=== PATIENT | female | born 1945 | race Caucasian/White ===

== ENCOUNTER 2024-11-10 14:03 | Observation (INO) | payer MEDICARE ==
--- NOTE | 2024-11-10 14:10 | ERPHSYRPT ---
- History of Present Illness Time Seen by Provider: 11/10/24 14:10 Source: patient, family Exam Limitations: no limitations Physician History: This is an obese white female who presents to the emergency department arriving by private vehicle accompanied by family and is a patient of Dr. Callejas with a complaint of shortness of breath and weakness. The patient has not been feeling well for the last couple of weeks. She went to see Dr. Callejas in his office and her room air oxygen saturation level was in the 80s. Therefore she was sent to the emergency department for further evaluation management. On arrival to the emergency department her room her oxygen saturation level here was 88%. Patient denies chest pain. Patient denies abdominal pain. She has had no nausea vomiting and diarrhea. However, she does have a productive cough of greenish sputum. Patient has a history of hypertension, hyperlipidemia, diabetes, is on digoxin and Coumadin for her arrhythmia. Timing/Duration: week(s) (2), worse Severity of Dyspnea-Max: moderate Severity of Dyspnea-Current: moderate Possible Cause: occasional episodes Modifying Factors: Improves With: coughing, exertion (Symptoms worsen) Associated Symptoms: cough, weakness, No chest pain/discomfort Allergies/Adverse Reactions: JOSE ANTONIO Inhibitors Allergy (Unknown, Verified 11/10/24 14:11) bee venom protein (honey bee) Allergy (Unknown, Verified 11/10/24 14:11) Home Medications: Allopurinol 300 mg [Zyloprim 300 mg] 300 mg PO DAILY 11/10/24 [History] Amlodipine Besylate [Norvasc] 10 mg PO DAILY 11/10/24 [History] Atorvastatin Calcium 20 mg PO DAILY 11/10/24 [History] Digoxin 0.125 mg Tablet [Lanoxin 0.125MG TABLET] 0.25 mg PO DAILY 11/10/24 [History] Empagliflozin [Jardiance] 25 mg PO DAILY 11/10/24 [History] Furosemide 40 mg [Lasix 40 MG] 40 mg PO DAILY 11/10/24 [History] Glimepiride 2 mg [Amaryl 2 MG] 2 mg PO DAILY 11/10/24 [History] Losartan Potassium [Cozaar] 100 mg PO DAILY 11/10/24 [History] Potassium Chloride [Klor-Con M10] 10 meq PO BID 11/10/24 [History] Prednisone 5 mg [Deltasone 5 mg] 5 mg PO DAILY 11/10/24 [History] Warfarin Sodium 4 mg PO DAILY 11/10/24 [History] carvediloL [Carvedilol] 25 mg PO BID 11/10/24 [History] Travel Risk - International Travel Have you traveled outside of the country in past 3 weeks: No - Emerging Infectious Disease Are you exhibiting symptoms associated with any current EIDs: Yes Symptoms: Cough: New Onset, Shortness of Breath - Review of Systems Constitutional: Weakness Eyes: No Symptoms Ears, Nose, & Throat: No Symptoms Respiratory: Cough, Dyspnea on Exertion (CR) Cardiac: No Symptoms Abdominal/Gastrointestinal: No Symptoms Genitourinary Symptoms: No Symptoms Musculoskeletal: No Symptoms Skin: No Symptoms Neurological: No Symptoms Psychological: No Symptoms Endocrine: No Symptoms Hematologic/Lymphatic: No Symptoms Immunological/Allergic: No Symptoms All Other Systems: Reviewed and Negative - Past Medical History Pertinent Past Medical History: Yes - Nursing Vital Signs Nursing Vital Signs: Initial Vital Signs Pulse Rate 88 11/10/24 14:02 Respiratory Rate 23 11/10/24 14:02 Blood Pressure 147/66 11/10/24 14:02 O2 Sat by Pulse Oximetry 90 L 11/10/24 14:02 Pain Scale Pain Intensity 0 - Physical Exam General Appearance: mild distress, alert, anxiety, obese Eye Exam: PERRL/EOMI, eyes nml inspection Ears, Nose, Throat Exam: hearing grossly normal, normal ENT inspection, normal pharynx Neck Exam: normal inspection, non-tender, supple, full range of motion Respiratory Exam: normal breath sounds, lungs clear, respiratory distress, airway intact, No chest tenderness Cardiovascular/Chest Exam: normal heart sounds, regular rate/rhythm, normal nohemi pheral pulses Abdominal/Gastrointestinal Exam: soft, normal bowel sounds, No tenderness Rectal Exam: not done Extremity Exam: non-tender, normal range of motion, normal inspection Neurologic Exam: alert, oriented x 3, cooperative, lacer and tier II-XII nml as tested, nml cerebellar function, nml station & gait, sensation nml Skin Exam: normal color, warm, dry Lymphatic Exam: No adenopathy SpO2 Interpretation: hypoxic O2 Delivery: Room Air - Course Nursing assessment & vital signs reviewed: Yes EKG Interpreted by Me: RATE (88), A-fib, NORMAL AXIS, NORMAL INTERVALS, NORMAL QRS, Other (QTc is 418. I am not convinced there is an acute myocardial infarction. I will repeat the twelve-lead EKG.) Ordered Tests: Active Orders 24 hr Category Date Time Status EKG-ER Only STAT Care 11/10/24 14:23 Active EKG-ER Only STAT Care 11/10/24 16:38 Active IV Insertion STAT Care 11/10/24 14:23 Active Oxygen-ED Only Nasal Cannula 3 lpm Care 11/10/24 14:37 Active CHEST 1 VIEW (PORTABLE) Stat Exams 11/10/24 14:24 Completed BLOOD CULTURE Stat Lab 11/10/24 14:58 Received CBC W DIFF Stat Lab 11/10/24 14:33 Completed CMP Stat Lab 11/10/24 14:33 Completed CULTURE,SPUTUM Stat Lab 11/10/24 16:26 Ordered Lactic Acid Stat Lab 11/10/24 14:25 Completed Lactic Acid Stat Lab 11/10/24 16:36 Received MAGNESIUM Stat Lab 11/10/24 14:33 Completed Manual Differential NC Stat Lab 11/10/24 14:33 Completed NT PRO BNPII Stat Lab 11/10/24 14:33 Completed PROTIME WITH INR Stat Lab 11/10/24 14:33 Completed TROPONIN Q4H Lab 11/10/24 14:33 Completed TROPONIN Q4H Lab 11/10/24 18:30 Ordered TROPONIN Q4H Lab 11/10/24 22:30 Ordered UA W/RFX UR CULTURE Stat Lab 11/10/24 14:38 Completed Respiratory Therapy Assessment DAILY RT 11/10/24 14:19 Active Medication Summary Discontinued Medications Generic Name Dose Route Start Last Admin Trade Name Freq PRN Reason Stop Dose Admin Albuterol/Ipratropium Confirm 11/10/24 14:13 Ipratropium/Albuterol Sulfate 3 Ml Ampul.Neb Administered 11/10/24 14:14 Dose 3 ml IH .STK-MED ONE Albuterol/Ipratropium 3 ml 11/10/24 14:18 11/10/24 14:19 Ipratropium/Albuterol Sulfate 3 Ml Ampul.Neb IH 11/10/24 14:19 3 ml STAT ONE Administration Methylprednisolone Sodium 0 mg 11/10/24 15:51 11/10/24 15:53 Succinate 125 mg/ Sterile IV 11/10/24 15:52 125 mg Water 2 ml STAT ONE Administration Ceftriaxone Sodium 1 gm in 100 mls @ 200 mls/hr 11/10/24 16:29 11/10/24 16:43 Rocephin 1 Gm / 100 Ml Nacl IV 11/10/24 16:58 200 mls/hr STAT ONE 200 mls/hr Administration Ceftriaxone Sodium Confirm 11/10/24 16:41 Rocephin 1 Gm / 100 Ml Nacl Administered 11/10/24 16:42 Dose 1 gm in 100 mls @ ud IV .STK-MED ONE Methylprednisolone Sodium Succinate Confirm 11/10/24 15:52 Methylprednis Sod Succ 125 Mg/2 Ml Vial Administered 11/10/24 15:53 Dose 125 mg .ROUTE .STK-MED ONE Sterile Water Confirm 11/10/24 15:52 Water For Injection,Sterile 10 Ml Vial Administered 11/10/24 15:53 Dose 10 ml IJ .STK-MED ONE Lab/Rad Data: Laboratory Result Diagrams 11/10/24 14:33 11/10/24 14:33 Laboratory Results 11/10/24 11/10/24 11/10/24 Range/Units Unknown 14:58 14:38 WBC (3.98-10.04) x10^3/uL RBC (3.93-5.22) x10^6/uL Hgb (11.2-15.7) g/dL Hct (34.1-44.9) % MCV (79.4-94.8) fL MCH (25.6-32.2) pg MCHC (32.2-35.5) g/dL RDW (11.7-14.4) % Plt Count (182-369) x10^3/uL MPV (9.4-12.3) fL Gran % (34.0-71.1) % Immature Gran % (Auto) (0.001-0.429) % Nucleat RBC Rel Count (0.00-0.2) % Eos # (Auto) (0.04-0.36) x10^3/uL Immature Gran # (Auto) (0.001-0.031) x10^3u/L Absolute Lymphs (auto) (1.18-3.74) x10^3/uL Absolute Monos (auto) (0.24-0.86) x10^3/uL Absolute Nucleated RBC (0.00-0.012) x10^3u/L Lymphocytes % (19.3-51.7) % Monocytes % (4.7-12.5) % Eosinophils % (0.7-5.8) % Basophils % (0.1-1.2) % Absolute Granulocytes (1.56-6.13) x10^3/uL Segmented Neutrophils (34.0-71.1) % Band Neutrophils (0.0-2.0) % Lymphocytes (Manual) (19.3-51.7) % Monocytes (Manual) (4.7-12.5) % Basophils # (0.01-0.08) x10^3/uL Platelet Estimate (NORMAL) RBC Morphology Poikilocytosis Anisocytosis PT (9.4-12.5) SECONDS INR (0.8-3.0) Sodium (135-145) mmol/L Potassium (3.5-5.1) mmol/L Chloride (98-107) mmol/L Carbon Dioxide (22-30) mmol/L Anion Gap (5-15) MEQ/L BUN (7-17) mg/dL Creatinine (0.52-1.04) mg/dL Estimated GFR ML/MIN Glucose (74-106) mg/dL Lactic Acid (0.4-2.0) Calcium (8.4-10.2) mg/dL Magnesium (1.6-2.3) mg/dL Total Bilirubin (0.2-1.3) mg/dL AST (14-36) U/L ALT (0-35) U/L Alkaline Phosphatase (38-126) U/L Troponin I (0.000-0.033) ng/mL NT-Pro-B Natriuret Pep (<300) pg/mL Serum Total Protein (6.3-8.2) g/dL Albumin (3.5-5.0) g/dL Urine Color Yellow (Yellow) Urine Appearance Clear (Clear) Urine pH 5.5 (4.6-8.0) Ur Specific Woodson >=1.030 A (1.005-1.030) Urine Protein Trace A (Negative) Urine Glucose (UA) >=1000 A (Negative) mg/dL Urine Ketones 15 A (Negative) Urine Blood Negative (Negative) Urine Nitrite Negative (Negative) Urine Bilirubin Negative (Negative) Urine Urobilinogen 1.0 A (0.2) mg/dL Ur Leukocyte Esterase Negative (Negative) U Hyaline Cast (Auto) NONE SEEN (0-2) /LPF Urine Microscopic RBC 0-2 (0-5) /HPF Urine Microscopic WBC 0-2 (0-5) /HPF Ur Epithelial Cells None Seen (None Seen) /HPF Urine Bacteria None Seen (None Seen) /HPF Urine Culture Reflexed NO (NO) Digoxin 0.8 (0.8-1.9) ng/mL Influenza Type A Ag NEGATIVE (NEGATIVE) Influenza Type B Ag NEGATIVE (NEGATIVE) RSV (PCR) NEGATIVE (NEGATIVE) SARS-CoV-2 (PCR) NEGATIVE (NEGATIVE) 11/10/24 11/10/24 11/10/24 Range/Units 14:33 14:33 14:33 WBC (3.98-10.04) x10^3/uL RBC (3.93-5.22) x10^6/uL Hgb (11.2-15.7) g/dL Hct (34.1-44.9) % MCV (79.4-94.8) fL MCH (25.6-32.2) pg MCHC (32.2-35.5) g/dL RDW (11.7-14.4) % Plt Count (182-369) x10^3/uL MPV (9.4-12.3) fL Gran % (34.0-71.1) % Immature Gran % (Auto) (0.001-0.429) % Nucleat RBC Rel Count (0.00-0.2) % Eos # (Auto) (0.04-0.36) x10^3/uL Immature Gran # (Auto) (0.001-0.031) x10^3u/L Absolute Lymphs (auto) (1.18-3.74) x10^3/uL Absolute Monos (auto) (0.24-0.86) x10^3/uL Absolute Nucleated RBC (0.00-0.012) x10^3u/L Lymphocytes % (19.3-51.7) % Monocytes % (4.7-12.5) % Eosinophils % (0.7-5.8) % Basophils % (0.1-1.2) % Absolute Granulocytes (1.56-6.13) x10^3/uL Segmented Neutrophils (34.0-71.1) % Band Neutrophils (0.0-2.0) % Lymphocytes (Manual) (19.3-51.7) % Monocytes (Manual) (4.7-12.5) % Basophils # (0.01-0.08) x10^3/uL Platelet Estimate (NORMAL) RBC Morphology Poikilocytosis Anisocytosis PT 16.5 H (9.4-12.5) SECONDS INR 1.56 (0.8-3.0) Sodium 135 (135-145) mmol/L Potassium 4.1 (3.5-5.1) mmol/L Chloride 97 L (98-107) mmol/L Carbon Dioxide 24 (22-30) mmol/L Anion Gap 18.7 H (5-15) MEQ/L BUN 17 (7-17) mg/dL Creatinine 0.63 (0.52-1.04) mg/dL Estimated GFR 91.3 ML/MIN Glucose 145 H (74-106) mg/dL Lactic Acid (0.4-2.0) Calcium 8.8 (8.4-10.2) mg/dL Magnesium 2.4 H (1.6-2.3) mg/dL Total Bilirubin 1.20 (0.2-1.3) mg/dL AST 52 H (14-36) U/L ALT 64 H (0-35) U/L Alkaline Phosphatase 128 H (38-126) U/L Troponin I < 0.012 (0.000-0.033) ng/mL NT-Pro-B Natriuret Pep 598 (<300) pg/mL Serum Total Protein 7.0 (6.3-8.2) g/dL Albumin 3.8 (3.5-5.0) g/dL Urine Color (Yellow) Urine Appearance (Clear) Urine pH (4.6-8.0) Ur Specific Woodson (1.005-1.030) Urine Protein (Negative) Urine Glucose (UA) (Negative) mg/dL Urine Ketones (Negative) Urine Blood (Negative) Urine Nitrite (Negative) Urine Bilirubin (Negative) Urine Urobilinogen (0.2) mg/dL Ur Leukocyte Esterase (Negative) U Hyaline Cast (Auto) (0-2) /LPF Urine Microscopic RBC (0-5) /HPF Urine Microscopic WBC (0-5) /HPF Ur Epithelial Cells (None Seen) /HPF Urine Bacteria (None Seen) /HPF Urine Culture Reflexed (NO) Digoxin (0.8-1.9) ng/mL Influenza Type A Ag (NEGATIVE) Influenza Type B Ag (NEGATIVE) RSV (PCR) (NEGATIVE) SARS-CoV-2 (PCR) (NEGATIVE) 11/10/24 11/10/24 Range/Units 14:33 14:25 WBC 21.5 H (3.98-10.04) x10^3/uL RBC 5.26 H (3.93-5.22) x10^6/uL Hgb 14.9 (11.2-15.7) g/dL Hct 44.1 (34.1-44.9) % MCV 83.8 (79.4-94.8) fL MCH 28.3 (25.6-32.2) pg MCHC 33.8 (32.2-35.5) g/dL RDW 13.7 (11.7-14.4) % Plt Count 387 H (182-369) x10^3/uL MPV 9.7 (9.4-12.3) fL Gran % 81.4 H (34.0-71.1) % Immature Gran % (Auto) 1.6 H (0.001-0.429) % Nucleat RBC Rel Count 0.0 (0.00-0.2) % Eos # (Auto) 0.03 L (0.04-0.36) x10^3/uL Immature Gran # (Auto) 0.35 H (0.001-0.031) x10^3u/L Absolute Lymphs (auto) 1.98 (1.18-3.74) x10^3/uL Absolute Monos (auto) 1.61 H (0.24-0.86) x10^3/uL Absolute Nucleated RBC 0.00 (0.00-0.012) x10^3u/L Lymphocytes % 9.2 L (19.3-51.7) % Monocytes % 7.5 (4.7-12.5) % Eosinophils % 0.1 L (0.7-5.8) % Basophils % 0.2 (0.1-1.2) % Absolute Granulocytes 17.49 H (1.56-6.13) x10^3/uL Segmented Neutrophils 86 H (34.0-71.1) % Band Neutrophils 3 H (0.0-2.0) % Lymphocytes (Manual) 9 L (19.3-51.7) % Monocytes (Manual) 2 L (4.7-12.5) % Basophils # 0.05 (0.01-0.08) x10^3/uL Platelet Estimate NORMAL (NORMAL) RBC Morphology ABNORMAL Poikilocytosis 1+ Anisocytosis 1+ PT (9.4-12.5) SECONDS INR (0.8-3.0) Sodium (135-145) mmol/L Potassium (3.5-5.1) mmol/L Chloride (98-107) mmol/L Carbon Dioxide (22-30) mmol/L Anion Gap (5-15) MEQ/L BUN (7-17) mg/dL Creatinine (0.52-1.04) mg/dL Estimated GFR ML/MIN Glucose (74-106) mg/dL Lactic Acid 1.9 (0.4-2.0) Calcium (8.4-10.2) mg/dL Magnesium (1.6-2.3) mg/dL Total Bilirubin (0.2-1.3) mg/dL AST (14-36) U/L ALT (0-35) U/L Alkaline Phosphatase (38-126) U/L Troponin I (0.000-0.033) ng/mL NT-Pro-B Natriuret Pep (<300) pg/mL Serum Total Protein (6.3-8.2) g/dL Albumin (3.5-5.0) g/dL Urine Color (Yellow) Urine Appearance (Clear) Urine pH (4.6-8.0) Ur Specific Woodson (1.005-1.030) Urine Protein (Negative) Urine Glucose (UA) (Negative) mg/dL Urine Ketones (Negative) Urine Blood (Negative) Urine Nitrite (Negative) Urine Bilirubin (Negative) Urine Urobilinogen (0.2) mg/dL Ur Leukocyte Esterase (Negative) U Hyaline Cast (Auto) (0-2) /LPF Urine Microscopic RBC (0-5) /HPF Urine Microscopic WBC (0-5) /HPF Ur Epithelial Cells (None Seen) /HPF Urine Bacteria (None Seen) /HPF Urine Culture Reflexed (NO) Digoxin (0.8-1.9) ng/mL Influenza Type A Ag (NEGATIVE) Influenza Type B Ag (NEGATIVE) RSV (PCR) (NEGATIVE) SARS-CoV-2 (PCR) (NEGATIVE) - Progress Progress: improved, re-examined Air Movement: fair Progress Note: 11/10/24 14:45 My medical decision making of the assignment of at least moderate complexity is based on the review of the patient's past medical history, review of the patient's medication list, reviewed patient drug allergy list, history present illness and physical findings on examination. The workup in this patient includ es placement of intravenous line, respiratory therapy evaluation and treatment with DuoNeb, CBC, CMP, magnesium level, viral swabs, chest x-ray, PT/INR, troponin level, twelve-lead EKG, BNP. Differential diagnosis includes but is not limited to CHF exacerbation, COPD exacerbation, upper respiratory infection, pneumonia, arrhythmia, myocardial infarction, viral illness 11/10/24 17:08 I interpreted the patient's laboratory data results. Based on the laboratory data results, the patient has a significant leukocytosis with a left shift. Her troponin is in the normal range. She does not have chest pain. Chest x-ray was interpreted by the radiologist and I reviewed the impression. The impression states right lung infiltrate. I spoke with our telehospitalist, Dr. Berg. I reviewed the patient history, chief complaint, workup performed and its results, and the patient response to our intervention. We will place this patient in observation for IV antibiotics nebulizer treatments and oxygen supplementation Blood Culture(s) Obtained: Yes Antibiotics given: Yes Counseled pt/family regarding: lab results, diagnosis, rad results Medical Desision Making - Independent Historian Additional History obtained from: Spouse - Diagnostic Testing Diagnostic test were ordered, analyzed, and reviewed by me: Yes Radiological Interpretation: Reviewed by me, Teleradiologist Report - Risk of complications The pt has a high risk of morbidity or mortality based on: Decision regarding hospitilization or escalation of hosp level of care - Departure Departure Disposition: Observation Clinical Impression: Right pulmonary infiltrate on CXR, Leukocytosis, Hypoxia Condition: Fair Critical Care Time: Yes Critical Care Time(excluding separately billable procedures): Critical 30-74 mins (45 minutes) Referrals: ERYN CALLEJAS [Primary Care Provider] - Follow up/PCP as directed
[2024-11-10] MEDS ORDERED: DUONEB 0.5-3 MG/3 ml Neb IH ONE (14:13)
[2024-11-10] MEDS: DUONEB 0.5-3 MG/3 ml Neb IH ONE (14:19)
[2024-11-10 14:38] LABS: Absolute Neutrophil Ct (ANC) 17.49 x10^3/uL (1.56-6.13); BASOPHIL % 0.2 % (0.1-1.2); Basophil (Absolute #) 0.05 x10^3/uL (0.01-0.08); Eosinophil % 0.1 % (0.7-5.8); Eosinophil (Absolute #) 0.03 x10^3/uL (0.04-0.36); Hematocrit 44.1 % (34.1-44.9); Hemoglobin 14.9 g/dL (11.2-15.7); IMMATURE GRAN # 0.35 x10^3u/L (0.001-0.031); IMMATURE GRAN % 1.6 % (0.001-0.429); Lymphocyte (Absolute #) 1.98 x10^3/uL (1.18-3.74); Lymphocytes % 9.2 % (19.3-51.7); Mean Cell Volume 83.8 fL (79.4-94.8); Mean Corpuscular Hemoglobin 28.3 pg (25.6-32.2); Mean Corpuscular Hgb Concent. 33.8 g/dL (32.2-35.5); Mean Platelet Volume 9.7 fL (9.4-12.3); Monocyte (Absolute #) 1.61 x10^3/uL (0.24-0.86); Monocytes % 7.5 % (4.7-12.5); Neutrophil % 81.4 % (34.0-71.1); Platelet Count 387 x10^3/uL (182-369); Red Blood Count 5.26 x10^6/uL (3.93-5.22); Red Cell Distribution Width 13.7 % (11.7-14.4); White Blood Count 21.5 x10^3/uL (3.98-10.04)
[2024-11-10 14:52] LABS: INR 1.56 (0.8-3.0); PROTIME 16.5 SECONDS (9.4-12.5)
[2024-11-10 15:05] LABS: BAND 3 % (0.0-2.0); Lymphocytes 9 % (19.3-51.7); Monocyte 2 % (4.7-12.5); Neutrophils 86 % (34.0-71.1); Total Cells Counted 100
[2024-11-10 15:06] LABS: ANISOCYTOSIS 1+; Platelet Estimate NORMAL (NORMAL); Poikilocytosis 1+
[2024-11-10 15:10] LABS: ALBUMIN 3.8 g/dL (3.5-5.0); ANION GAP 18.7 MEQ/L (5-15); BILIRUBIN,TOTAL 1.2 mg/dL (0.2-1.3); Calcium 8.8 mg/dL (8.4-10.2); Creatinine 1 0.63 mg/dL (0.52-1.04); EST GLOMERULAR FILTRATION RATE 91.3 ML/MIN; MAGNESIUM 2.4 mg/dL (1.6-2.3); Potassium 4.1 mmol/L (3.5-5.1)
[2024-11-10 15:34] LABS: Appearance Clear (Clear); Bacteria None Seen /HPF (None Seen); Bilirubin Negative (Negative); Blood Negative (Negative); Epithelial Cells None Seen /HPF (None Seen); Glucose, Urine >=1000 mg/dL (Negative); Hyaline Casts NONE SEEN /LPF (0-2); Ketones 15 (Negative); Leukocyte Esterase Negative (Negative); Nitrite Negative (Negative); Ph 5.5 (4.6-8.0); Protein,Urine Dip Trace (Negative); RBC 0-2 /HPF (0-5); Specific Gravity >=1.030 (1.005-1.030); WBC 0-2 /HPF (0-5)
[2024-11-10] MEDS ORDERED: Sterile H2O 10 ml IJ ONE ×2 (15:52→21:02)
[2024-11-10] MEDS ORDERED: solu-MEDROL ONE ×2 (15:52→21:01)
[2024-11-10 15:53] LABS: INFLUENZA A NEGATIVE (NEGATIVE); INFLUENZA B NEGATIVE (NEGATIVE); RESPIRATORY SYNCTIAL VIRUS NEGATIVE (NEGATIVE); SARS-CoV-2 Xpert Express NEGATIVE (NEGATIVE)
[2024-11-10] MEDS: solu-MEDROL 125 MG, Sterile H2O 10 ml 2 ML IV ONE (15:53)
--- NOTE | 2024-11-10 16:26 | XRAY ---
Indication: Cough. Short of breath. Comparison: None Portable chest demonstrates diffuse hazy right lung interstitial alveolar opacities without consolidation/large effusion. Remaining heart and left lung unremarkable. Bony thorax intact.
[2024-11-10] MEDS ORDERED: ROCEPHIN 1 GM / 100 ML NaCl 1 GM/100 ML IVPB IV ONE (16:41)
[2024-11-10] MEDS: ROCEPHIN 1 GM / 100 ML NaCl 1 GM/100 ML IVPB IV ONE (16:43)
[2024-11-10] MEDS ORDERED: Sodium Chloride 0.9% 1000 ML 1,000 ML IV SCH (17:31)
[2024-11-10] MEDS ORDERED: TYLENOL 325 MG PO PRN (17:31)
[2024-11-10] MEDS ORDERED: Zofran 4 MG/2 ML VIAL IV PRN (17:31)
--- NOTE | 2024-11-10 18:40 | PCM.HP ---
History of Present Illness - Chief Complaint Chief Complaint: PNE Date: 11/10/24 History of Present Illness: is a 79 year old female with PMHX of of hypertension, hyperlipidemia, diabetes, is on digoxin and Coumadin for her arrhythmia. She presented to the emergency department with a complaint of shortness of breath and weakness. The patient has not been feeling well for the last couple of weeks. She went to see Dr. Callejas in his office and her room air oxygen saturation level was in the 80s. Therefore she was sent to the emergency department for further evaluation management. On arrival to the emergency department her room her oxygen saturation level here was 88%. She has a productive cough of greenish sputum. In the ER she was started on antibiotics, steriods, and dunebs for pneumonia as seen on the CXR. Will continue same plan of care. She is on 2lNC 92 % and baseline is room air. She states she is starting to feel better after ER breathing treatment. She has continued coarse lung sounds throughout. She denies CP, Abd. pain, N/V/D. - Review of Systems Constitutional: Weakness, No Fever, No Chills Eyes: No Symptoms Ears, Nose, & Throat: No Symptoms Respiratory: Cough, Short Of Breath Cardiac: No Chest Pain, No Edema, No Syncope Abdominal/Gastrointestinal: No Abdominal Pain, No Nausea, No Vomiting, No Diarrhea Genitourinary Symptoms: No Dysuria Musculoskeletal: No Back Pain, No Neck Pain Skin: No Rash Neurological: No Dizziness, No Focal Weakness, No Sensory Changes Psychological: No Symptoms Endocrine: No Symptoms Hematologic/Lymphatic: No Symptoms Immunological/Allergic: No Symptoms Medications & Allergies Home Medications: Home Medication List Allopurinol 300 mg [Zyloprim 300 mg] 300 mg PO QHS 11/10/24 [History Confirmed 11/10/24] Amlodipine Besylate [Norvasc] 10 mg PO DAILY 11/10/24 [History Confirmed 11/10/24] Atorvastatin Calcium 20 mg PO QHS 11/10/24 [History Confirmed 11/10/24] Digoxin 0.125 mg Tablet [Lanoxin 0.125MG TABLET] 0.25 mg PO DAILY 11/10/24 [History Confirmed 11/10/24] Empagliflozin [Jardiance] 25 mg PO DAILY 11/10/24 [History Confirmed 11/10/24] Furosemide 40 mg [Lasix 40 MG] 40 mg PO DAILY 11/10/24 [History Confirmed 11/10/24] Glimepiride 2 mg [Amaryl 2 MG] 2 mg PO DAILY 11/10/24 [History Confirmed 11/10/24] Losartan Potassium [Cozaar] 100 mg PO DAILY 11/10/24 [History Confirmed 11/10/24] Potassium Chloride [Klor-Con M10] 10 meq PO BID 11/10/24 [History Confirmed 11/10/24] Prednisone 5 mg [Deltasone 5 mg] 5 mg PO DAILY 11/10/24 [History Confirmed 11/10/24] Warfarin Sodium 4 mg PO QHS 11/10/24 [History Confirmed 11/10/24] carvediloL [Carvedilol] 25 mg PO BID 11/10/24 [History Confirmed 11/10/24] Allergies/Adverse Reactions: Allergies Allergy/AdvReac Type Severity Reaction Status Date / Time JOSE ANTONIO Inhibitors Allergy Severe Anaphylactic Verified 11/10/24 17:51 Reaction bee venom protein (honey bee) Allergy Severe Anaphylactic Verified 11/10/24 17:51 Reaction - Past Medical History Past Medical History: Yes Neurological History: No Pertinent History ENT History: No Pertinent History Cardiac History: Arrhythmia, High Cholesterol, Hypertension Respiratory History: No Pertinent History Endocrine Medical History: Diabetes Type II Musculoskelatal History: No Pertinent History GI Medical History: No Pertinent History History: No Pertinent History Pyscho-Social History: No Pertinent History Reproductive Disorders: No Pertinent History Comment: gout - Past Surgical History Past Surgical History: Yes GI Surgical History: Appendectomy Other Surgical History: cardioversion, heart ablation - Social History Smoking Status: Never smoker Exposure to second hand smoke: No Alcohol: Occasionally Drug Use: none - Social Determinants of Health Will the patient participate in the screening: Yes Do you worry about a steady place to live?: No Do you have any problems with any of the following?: No known problems In the past 12 months,have you had to go without utilities?: No Have you or anyone in your house had to go without enough: No Transportation Issues: No Has anyone in your support network made you feel unsafe?: No Does the patient want assistance with any of the above?: No - Physical Exam Vital Signs: Vital Signs - 24 hr Temp Pulse Resp BP BP Pulse Ox 11/10/24 17:54 97.5 F 102 H 132/66 91 L 11/10/24 17:52 92 L 11/10/24 17:31 91 H 22 88 L 11/10/24 17:15 91 H 25 H 162/108 92 L 11/10/24 17:01 92 H 23 135/81 92 L 11/10/24 16:45 88 21 147/86 92 L 11/10/24 16:38 85 21 163/70 91 L 11/10/24 16:30 102 H 22 155/112 92 L 11/10/24 16:28 86 23 131/93 90 L 11/10/24 16:27 86 18 91 L 11/10/24 16:20 90 21 92 L 11/10/24 16:16 87 20 94 L 11/10/24 16:03 88 21 92 L 11/10/24 15:47 95 H 20 88 L 11/10/24 15:32 87 24 92 L 11/10/24 15:17 82 19 158/98 91 L 11/10/24 15:16 88 25 H 93 L 11/10/24 15:10 85 22 93 L 11/10/24 15:00 91 H 28 H 93 L 11/10/24 14:50 98 H 26 H 11/10/24 14:46 96 H 23 11/10/24 14:20 83 26 H 90 L 11/10/24 14:17 84 22 150/56 98 11/10/24 14:03 97.5 F 76 24 147/66 90 L 11/10/24 14:02 88 23 147/66 90 L General Appearance: no apparent distress, alert, obese Neurologic Exam: alert, oriented x 3, cooperative, normal mood/affect, nml cerebellar function, nml station & gait, sensation nml, No motor deficits Eye Exam: PERRL/EOMI, eyes nml inspection Ears, Nose, Throat Exam: normal ENT inspection, TMs normal, pharynx normal, moist mucous membranes Neck Exam: normal inspection, non-tender, supple, full range of motion Respiratory Exam: rhonchi, No respiratory distress Cardiovascular Exam: regular rate/rhythm, normal heart sounds, normal peripheral pulses Gastrointestinal/Abdomen Exam: soft, normal bowel sounds, No tenderness, No mass Back Exam: normal inspection, normal range of motion, No CVA tenderness, No vertebral tenderness Extremity Exam: normal inspection, normal range of motion, pelvis stable Skin Exam: normal color, warm, dry, No rash Lymphatic Exam: No adenopathy Results - Labs Lab/Micro Results: Lab Results-Last 24 Hours 11/10/24 11/10/24 11/10/24 Range/Units 14:25 14:33 14:33 WBC 21.5 H (3.98-10.04) x10^3/uL RBC 5.26 H (3.93-5.22) x10^6/uL Hgb 14.9 (11.2-15.7) g/dL Hct 44.1 (34.1-44.9) % MCV 83.8 (79.4-94.8) fL MCH 28.3 (25.6-32.2) pg MCHC 33.8 (32.2-35.5) g/dL RDW 13.7 (11.7-14.4) % Plt Count 387 H (182-369) x10^3/uL MPV 9.7 (9.4-12.3) fL Gran % 81.4 H (34.0-71.1) % Immature Gran % (Auto) 1.6 H (0.001-0.429) % Nucleat RBC Rel Count 0.0 (0.00-0.2) % Eos # (Auto) 0.03 L (0.04-0.36) x10^3/uL Immature Gran # (Auto) 0.35 H (0.001-0.031) x10^3u/L Absolute Lymphs (auto) 1.98 (1.18-3.74) x10^3/uL Absolute Monos (auto) 1.61 H (0.24-0.86) x10^3/uL Absolute Nucleated RBC 0.00 (0.00-0.012) x10^3u/L Lymphocytes % 9.2 L (19.3-51.7) % Monocytes % 7.5 (4.7-12.5) % Eosinophils % 0.1 L (0.7-5.8) % Basophils % 0.2 (0.1-1.2) % Absolute Granulocytes 17.49 H (1.56-6.13) x10^3/uL Segmented Neutrophils 86 H (34.0-71.1) % Band Neutrophils 3 H (0.0-2.0) % Lymphocytes (Manual) 9 L (19.3-51.7) % Monocytes (Manual) 2 L (4.7-12.5) % Basophils # 0.05 (0.01-0.08) x10^3/uL Platelet Estimate NORMAL (NORMAL) RBC Morphology ABNORMAL Poikilocytosis 1+ Anisocytosis 1+ PT (9.4-12.5) SECONDS INR (0.8-3.0) Sodium 135 (135-145) mmol/L Potassium 4.1 (3.5-5.1) mmol/L Chloride 97 L (98-107) mmol/L Carbon Dioxide 24 (22-30) mmol/L Anion Gap 18.7 H (5-15) MEQ/L BUN 17 (7-17) mg/dL Creatinine 0.63 (0.52-1.04) mg/dL Estimated GFR 91.3 ML/MIN Glucose 145 H (74-106) mg/dL Lactic Acid 1.9 (0.4-2.0) Calcium 8.8 (8.4-10.2) mg/dL Magnesium 2.4 H (1.6-2.3) mg/dL Total Bilirubin 1.20 (0.2-1.3) mg/dL AST 52 H (14-36) U/L ALT 64 H (0-35) U/L Alkaline Phosphatase 128 H (38-126) U/L Troponin I (0.000-0.033) ng/mL NT-Pro-B Natriuret Pep 598 (<300) pg/mL Serum Total Protein 7.0 (6.3-8.2) g/dL Albumin 3.8 (3.5-5.0) g/dL Urine Color (Yellow) Urine Appearance (Clear) Urine pH (4.6-8.0) Ur Specific [place] (1.005-1.030) Urine Protein (Negative) Urine Glucose (UA) (Negative) mg/dL Urine Ketones (Negative) Urine Blood (Negative) Urine Nitrite (Negative) Urine Bilirubin (Negative) Urine Urobilinogen (0.2) mg/dL Ur Leukocyte Esterase (Negative) U Hyaline Cast (Auto) (0-2) /LPF Urine Microscopic RBC (0-5) /HPF Urine Microscopic WBC (0-5) /HPF Ur Epithelial Cells (None Seen) /HPF Urine Bacteria (None Seen) /HPF Urine Culture Reflexed (NO) Digoxin (0.8-1.9) ng/mL Influenza Type A Ag (NEGATIVE) Influenza Type B Ag (NEGATIVE) RSV (PCR) (NEGATIVE) SARS-CoV-2 (PCR) (NEGATIVE) 11/10/24 11/10/24 11/10/24 Range/Units 14:33 14:33 14:38 WBC (3.98-10.04) x10^3/uL RBC (3.93-5.22) x10^6/uL Hgb (11.2-15.7) g/dL Hct (34.1-44.9) % MCV (79.4-94.8) fL MCH (25.6-32.2) pg MCHC (32.2-35.5) g/dL RDW (11.7-14.4) % Plt Count (182-369) x10^3/uL MPV (9.4-12.3) fL Gran % (34.0-71.1) % Immature Gran % (Auto) (0.001-0.429) % Nucleat RBC Rel Count (0.00-0.2) % Eos # (Auto) (0.04-0.36) x10^3/uL Immature Gran # (Auto) (0.001-0.031) x10^3u/L Absolute Lymphs (auto) (1.18-3.74) x10^3/uL Absolute Monos (auto) (0.24-0.86) x10^3/uL Absolute Nucleated RBC (0.00-0.012) x10^3u/L Lymphocytes % (19.3-51.7) % Monocytes % (4.7-12.5) % Eosinophils % (0.7-5.8) % Basophils % (0.1-1.2) % Absolute Granulocytes (1.56-6.13) x10^3/uL Segmented Neutrophils (34.0-71.1) % Band Neutrophils (0.0-2.0) % Lymphocytes (Manual) (19.3-51.7) % Monocytes (Manual) (4.7-12.5) % Basophils # (0.01-0.08) x10^3/uL Platelet Estimate (NORMAL) RBC Morphology Poikilocytosis Anisocytosis PT 16.5 H (9.4-12.5) SECONDS INR 1.56 (0.8-3.0) Sodium (135-145) mmol/L Potassium (3.5-5.1) mmol/L Chloride (98-107) mmol/L Carbon Dioxide (22-30) mmol/L Anion Gap (5-15) MEQ/L BUN (7-17) mg/dL Creatinine (0.52-1.04) mg/dL Estimated GFR ML/MIN Glucose (74-106) mg/dL Lactic Acid (0.4-2.0) Calcium (8.4-10.2) mg/dL Magnesium (1.6-2.3) mg/dL Total Bilirubin (0.2-1.3) mg/dL AST (14-36) U/L ALT (0-35) U/L Alkaline Phosphatase (38-126) U/L Troponin I < 0.012 (0.000-0.033) ng/mL NT-Pro-B Natriuret Pep (<300) pg/mL Serum Total Protein (6.3-8.2) g/dL Albumin (3.5-5.0) g/dL Urine Color Yellow (Yellow) Urine Appearance Clear (Clear) Urine pH 5.5 (4.6-8.0) Ur Specific [place] >=1.030 A (1.005-1.030) Urine Protein Trace A (Negative) Urine Glucose (UA) >=1000 A (Negative) mg/dL Urine Ketones 15 A (Negative) Urine Blood Negative (Negative) Urine Nitrite Negative (Negative) Urine Bilirubin Negative (Negative) Urine Urobilinogen 1.0 A (0.2) mg/dL Ur Leukocyte Esterase Negative (Negative) U Hyaline Cast (Auto) NONE SEEN (0-2) /LPF Urine Microscopic RBC 0-2 (0-5) /HPF Urine Microscopic WBC 0-2 (0-5) /HPF Ur Epithelial Cells None Seen (None Seen) /HPF Urine Bacteria None Seen (None Seen) /HPF Urine Culture Reflexed NO (NO) Digoxin (0.8-1.9) ng/mL Influenza Type A Ag (NEGATIVE) Influenza Type B Ag (NEGATIVE) RSV (PCR) (NEGATIVE) SARS-CoV-2 (PCR) (NEGATIVE) 11/10/24 11/10/24 Range/Units 14:58 Unknown WBC (3.98-10.04) x10^3/uL RBC (3.93-5.22) x10^6/uL Hgb (11.2-15.7) g/dL Hct (34.1-44.9) % MCV (79.4-94.8) fL MCH (25.6-32.2) pg MCHC (32.2-35.5) g/dL RDW (11.7-14.4) % Plt Count (182-369) x10^3/uL MPV (9.4-12.3) fL Gran % (34.0-71.1) % Immature Gran % (Auto) (0.001-0.429) % Nucleat RBC Rel Count (0.00-0.2) % Eos # (Auto) (0.04-0.36) x10^3/uL Immature Gran # (Auto) (0.001-0.031) x10^3u/L Absolute Lymphs (auto) (1.18-3.74) x10^3/uL Absolute Monos (auto) (0.24-0.86) x10^3/uL Absolute Nucleated RBC (0.00-0.012) x10^3u/L Lymphocytes % (19.3-51.7) % Monocytes % (4.7-12.5) % Eosinophils % (0.7-5.8) % Basophils % (0.1-1.2) % Absolute Granulocytes (1.56-6.13) x10^3/uL Segmented Neutrophils (34.0-71.1) % Band Neutrophils (0.0-2.0) % Lymphocytes (Manual) (19.3-51.7) % Monocytes (Manual) (4.7-12.5) % Basophils # (0.01-0.08) x10^3/uL Platelet Estimate (NORMAL) RBC Morphology Poikilocytosis Anisocytosis PT (9.4-12.5) SECONDS INR (0.8-3.0) Sodium (135-145) mmol/L Potassium (3.5-5.1) mmol/L Chloride (98-107) mmol/L Carbon Dioxide (22-30) mmol/L Anion Gap (5-15) MEQ/L BUN (7-17) mg/dL Creatinine (0.52-1.04) mg/dL Estimated GFR ML/MIN Glucose (74-106) mg/dL Lactic Acid (0.4-2.0) Calcium (8.4-10.2) mg/dL Magnesium (1.6-2.3) mg/dL Total Bilirubin (0.2-1.3) mg/dL AST (14-36) U/L ALT (0-35) U/L Alkaline Phosphatase (38-126) U/L Troponin I (0.000-0.033) ng/mL NT-Pro-B Natriuret Pep (<300) pg/mL Serum Total Protein (6.3-8.2) g/dL Albumin (3.5-5.0) g/dL Urine Color (Yellow) Urine Appearance (Clear) Urine pH (4.6-8.0) Ur Specific [place] (1.005-1.030) Urine Protein (Negative) Urine Glucose (UA) (Negative) mg/dL Urine Ketones (Negative) Urine Blood (Negative) Urine Nitrite (Negative) Urine Bilirubin (Negative) Urine Urobilinogen (0.2) mg/dL Ur Leukocyte Esterase (Negative) U Hyaline Cast (Auto) (0-2) /LPF Urine Microscopic RBC (0-5) /HPF Urine Microscopic WBC (0-5) /HPF Ur Epithelial Cells (None Seen) /HPF Urine Bacteria (None Seen) /HPF Urine Culture Reflexed (NO) Digoxin 0.8 (0.8-1.9) ng/mL Influenza Type A Ag NEGATIVE (NEGATIVE) Influenza Type B Ag NEGATIVE (NEGATIVE) RSV (PCR) NEGATIVE (NEGATIVE) SARS-CoV-2 (PCR) NEGATIVE (NEGATIVE) - Radiology Impressions Radiology Exams & Impressions: Radiology Procedures Category Date Time Status CHEST 1 VIEW (PORTABLE) Stat Exams 11/10/24 14:24 Completed - Other Procedures and Tests Respiratory Therapy 11/10/24 17:31 EKG REPEAT IN AM Oxygen Nasal Cannula 2 lpm Respiratory Therapy Consult ONCE Assessment/Plan (1) Pneumonia Current Visit: Yes Status: Acute Qualifiers: Laterality: right Assessment & Plan: - CXR reviewed - Sputum and BC x2 pending - O2 2lNC 94%- baseline RA - antibiotocs, steroids, duonebs. - Tele - CBC, CMP reviewed - FLu/COVID/RSV negative Code(s): J18.9 - PNEUMONIA, UNSPECIFIED ORGANISM (2) Type II diabetes mellitus Current Visit: Yes Status: Acute Qualifiers: Diabetes mellitus shelter insulin use: without shelter use Diabetes mellitus complication status: without complication Qualified Code(s): E11.9 - Type 2 diabetes mellitus without complications Assessment & Plan: - A1C - Continue home meds - accuchecks ac/hs - Humalog S/S (3) Hypoxia Current Visit: Yes Status: Acute Assessment & Plan: - 2:2 pneumonia - See plan above Code(s): R09.02 - HYPOXEMIA (4) Leukocytosis Current Visit: Yes Status: Acute Assessment & Plan: - 2:2 pneumonia - WBC 21.5- trend Code(s): D72.829 - ELEVATED WHITE BLOOD CELL COUNT, UNSPECIFIED (5) HTN (hypertension) Current Visit: Yes Status: Chronic Qualifiers: Hypertension type: primary hypertension Qualified Code(s): I10 - Essential (primary) hypertension Assessment & Plan: - BP stable - Continue home meds Code(s): I10 - ESSENTIAL (PRIMARY) HYPERTENSION (6) Hyperlipidemia Current Visit: Yes Status: Chronic Assessment & Plan: - Continue statin Code(s): E78.5 - HYPERLIPIDEMIA, UNSPECIFIED (7) Current use of shelter anticoagulation Current Visit: Yes Status: Chronic Assessment & Plan: - Pharmacy to dose coumadin - warfarin - INR today 1.56- subtherapeutic Code(s): Z79.01 - PRISON (CURRENT) USE OF ANTICOAGULANTS (8) Obesity (BMI 30-39.9) Current Visit: Yes Status: Chronic Assessment & Plan: - Advised ADA diet and exercise control VTE: PPI: Next of KIN: Code status: Full D/C plan: 1-2 days Code(s): E66.9 - OBESITY, UNSPECIFIED Telemedicine Encounter - Telemedicine Encounter Telemedicine Encounter: "The entirety of this encounter was performed via Telemedicine" This visit was performed using real-time audio and video connection between my location and thepatients locationwith the assistance of a surrogateat the patients location. Written or verbal consent was obtained from the patient/guardian to perform [facility]. Any patient questions regarding the telemedicine interaction were answered.
[2024-11-10] MEDS: DUONEB 0.5-3 MG/3 ml Neb IH SCH (20:38)
[2024-11-10] MEDS ORDERED: COREG 12.5 MG ONE (21:00)
[2024-11-10] MEDS ORDERED: Coumadin 3 MG ONE (21:01)
[2024-11-10] MEDS ORDERED: Klor Con ONE (21:01)
[2024-11-10] MEDS ORDERED: COUMADIN ONE (21:01)
[2024-11-10] MEDS: NON-FORMULARY ITEM (Carvedilol [Carvedilol] 25 MG Tablet) PO SCH (22:14)
[2024-11-10] MEDS: NON-FORMULARY ITEM (Warfarin Sodium [Warfarin Sodium] 2.5 MG Tablet) PO SCH (22:15)
[2024-11-10] MEDS: NON-FORMULARY ITEM (Potassium Chloride [Klor-Con M10] 10 MEQ Tab.Er.Prt) PO SCH (22:16)
[2024-11-10] MEDS: Mucinex 600MG ER Tabs PO SCH (22:16)
[2024-11-10] MEDS: solu-MEDROL 40 MG, Sterile H2O 10 ml 1 ML IV SCH (22:16)
[2024-11-10] MEDS: ZYLOPRIM 300 MG PO SCH (22:16)
[2024-11-10] MEDS: HUMALOG SQ PRN (22:31)
[2024-11-11 04:41] LABS: Absolute Neutrophil Ct (ANC) 15.55 x10^3/uL (1.56-6.13); BASOPHIL % 0.2 % (0.1-1.2); Basophil (Absolute #) 0.04 x10^3/uL (0.01-0.08); Eosinophil (Absolute #) 0 x10^3/uL (0.04-0.36); Hematocrit 42.4 % (34.1-44.9); Hemoglobin 14.2 g/dL (11.2-15.7); IMMATURE GRAN # 0.39 x10^3u/L (0.001-0.031); IMMATURE GRAN % 2.3 % (0.001-0.429); Lymphocyte (Absolute #) 1.09 x10^3/uL (1.18-3.74); Lymphocytes % 6.3 % (19.3-51.7); Mean Cell Volume 83.6 fL (79.4-94.8); Mean Corpuscular Hgb Concent. 33.5 g/dL (32.2-35.5); Mean Platelet Volume 9.9 fL (9.4-12.3); Monocyte (Absolute #) 0.23 x10^3/uL (0.24-0.86); Monocytes % 1.3 % (4.7-12.5); Neutrophil % 89.9 % (34.0-71.1); Platelet Count 395 x10^3/uL (182-369); Red Blood Count 5.07 x10^6/uL (3.93-5.22); Red Cell Distribution Width 13.6 % (11.7-14.4); White Blood Count 17.3 x10^3/uL (3.98-10.04)
[2024-11-11 05:11] LABS: ANION GAP 19.4 MEQ/L (5-15); BILIRUBIN,TOTAL 0.8 mg/dL (0.2-1.3); Calcium 8.6 mg/dL (8.4-10.2); Creatinine 1 0.85 mg/dL (0.52-1.04); EST GLOMERULAR FILTRATION RATE 70.5 ML/MIN; Potassium 3.9 mmol/L (3.5-5.1); Total Protein 7.5 g/dL (6.3-8.2)
[2024-11-11] MEDS: NON-FORMULARY ITEM (Atorvastatin Calcium [Atorvastatin Calcium] 20 MG Tablet) PO SCH (05:24)
[2024-11-11] MEDS: ROCEPHIN 1 GM / 100 ML NaCl 1 GM/100 ML IVPB IV SCH (09:04)
[2024-11-11] MEDS: Cozaar 50 MG PO SCH (09:07)
[2024-11-11] MEDS: Amaryl 2 MG PO SCH (09:07)
[2024-11-11] MEDS: NORVASC 5 MG PO SCH (09:07)
[2024-11-11] MEDS: Lasix 40 MG PO SCH (09:08)
[2024-11-11] MEDS: Lanoxin 0.125MG TABLET PO SCH (09:08)
[2024-11-11] MEDS: Klor Con PO SCH (09:15)
[2024-11-11] MEDS: COREG 12.5 MG PO SCH (09:15)
--- NOTE | 2024-11-11 09:16 | PCM.NOTE ---
Date and Time: 11/11/24 0911 Subjective Assessment: 11/10/24 is a 79 year old female with PMHX of of hypertension, hyperlipidemia, diabetes, is on digoxin and Coumadin for her arrhythmia. She presented to the emergency department with a complaint of shortness of breath and weakness. The patient has not been feeling well for the last couple of weeks. She went to see Dr. Callejas in his office and her room air oxygen saturation level was in the 80s. Therefore she was sent to the emergency department for further evaluation management. On arrival to the emergency department her room her oxygen saturation level here was 88%. She has a productive cough of greenish sputum. In the ER she was started on antibiotics, steriods, and dunebs for pneumonia as seen on the CXR. Will continue same plan of care. She is on 2lNC 92 % and baseline is room air. She states she is starting to feel better after ER breathing treatment. She has continued coarse lung sounds throughout. She denies CP, Abd. pain, N/V/D. 11/11/24 Pt sitting up in bed. She states she is starting to feel better today. WBC improving at 17.3. Continue antibiotics, steroids, and duonebs for pneumonia. A1C 12.08 and discussed better diabetic control via diet and exercise. Discussed to look at feet thoroughly daily to access for wounds, and to f/u with PCP if she see;s anything concerning. Will need to d/c with insulin. Case management to help with obtaining glucometer for home. Nurse advised to provide diabetic insulin teaching. Lactic acid WNL today. LFT's elevated likely 2:2 sepsis. She denies CP, abd. pain, N/V/D. She has continued SOB and coarse lung sounds on the right side. - Review of Systems Constitutional: No Fever, No Chills Eyes: No Symptoms Ears, Nose, & Throat: No Symptoms Respiratory: Cough, Short Of Breath Cardiac: No Chest Pain, No Edema, No Syncope Abdominal/Gastrointestinal: No Abdominal Pain, No Nausea, No Vomiting, No Diarrhea Genitourinary Symptoms: No Dysuria Musculoskeletal: No Back Pain, No Neck Pain Skin: No Rash Neurological: No Dizziness, No Focal Weakness, No Sensory Changes Psychological: No Symptoms Endocrine: No Symptoms Hematologic/Lymphatic: No Symptoms Immunological/Allergic: No Symptoms Objective Exam General Appearance: no apparent distress, alert, obese Neurologic Exam: alert, oriented x 3, cooperative, normal mood/affect, nml cerebellar function, sensation nml, No motor deficits Skin Exam: normal color, warm, dry Eye Exam: PERRL, EOMI, eyes nml inspection Ears, Nose, Throat Exam: normal ENT inspection, pharynx normal, moist mucous membranes Neck Exam: normal inspection, non-tender, supple, full range of motion Respiratory Exam: rhonchi (right), wheezing (right), No respiratory distress Cardiovascular Exam: regular rate/rhythm, normal heart sounds Gastrointestinal/Abdomen Exam: soft, No tenderness, No mass Extremity Exam: normal inspection, normal range of motion Back Exam: normal inspection, normal range of motion, No CVA tenderness, No vertebral tenderness Pelvic Exam: deferred Rectal Exam: deferred Objective Data Vital Signs: Vital Signs - 24 hr Temp Pulse Resp BP BP Pulse Ox 11/11/24 07:42 97.1 F 72 18 122/64 93 L 11/11/24 05:20 77 22 95 11/11/24 04:00 97.7 F 70 18 130/72 92 L 11/11/24 00:00 97.9 F 87 22 124/67 93 L 11/10/24 20:41 101 H 20 93 L 11/10/24 20:00 98.0 F 105 H 22 129/61 91 L 11/10/24 17:54 97.5 F 102 H 132/66 91 L 11/10/24 17:52 92 L 11/10/24 17:31 91 H 22 88 L 11/10/24 17:15 91 H 25 H 162/108 92 L 11/10/24 17:01 92 H 23 135/81 92 L 11/10/24 16:45 88 21 147/86 92 L 11/10/24 16:38 85 21 163/70 91 L 11/10/24 16:30 102 H 22 155/112 92 L 11/10/24 16:28 86 23 131/93 90 L 11/10/24 16:27 86 18 91 L 11/10/24 16:20 90 21 92 L 11/10/24 16:16 87 20 94 L 11/10/24 16:03 88 21 92 L 11/10/24 15:47 95 H 20 88 L 11/10/24 15:32 87 24 92 L 11/10/24 15:17 82 19 158/98 91 L 11/10/24 15:16 88 25 H 93 L 11/10/24 15:10 85 22 93 L 11/10/24 15:00 91 H 28 H 93 L 11/10/24 14:50 98 H 26 H 11/10/24 14:46 96 H 23 11/10/24 14:20 83 26 H 90 L 11/10/24 14:17 84 22 150/56 98 11/10/24 14:03 97.5 F 76 24 147/66 90 L 11/10/24 14:02 88 23 147/66 90 L Pain Assessment - Last Documented Pain Intensity 0 Intake and Output: Intake & Output 11/08/24 11/09/24 11/10/24 11/11/24 11:59 11:59 11:59 11:59 Intake Total 600 Balance 600 Weight 95.4 kg Lab Results: Lab Results-Last 24 Hours 11/10/24 11/10/24 11/10/24 Range/Units 14:25 14:33 14:33 WBC 21.5 H (3.98-10.04) x10^3/uL RBC 5.26 H (3.93-5.22) x10^6/uL Hgb 14.9 (11.2-15.7) g/dL Hct 44.1 (34.1-44.9) % MCV 83.8 (79.4-94.8) fL MCH 28.3 (25.6-32.2) pg MCHC 33.8 (32.2-35.5) g/dL RDW 13.7 (11.7-14.4) % Plt Count 387 H (182-369) x10^3/uL MPV 9.7 (9.4-12.3) fL Gran % 81.4 H (34.0-71.1) % Immature Gran % (Auto) 1.6 H (0.001-0.429) % Nucleat RBC Rel Count 0.0 (0.00-0.2) % Eos # (Auto) 0.03 L (0.04-0.36) x10^3/uL Immature Gran # (Auto) 0.35 H (0.001-0.031) x10^3u/L Absolute Lymphs (auto) 1.98 (1.18-3.74) x10^3/uL Absolute Monos (auto) 1.61 H (0.24-0.86) x10^3/uL Absolute Nucleated RBC 0.00 (0.00-0.012) x10^3u/L Lymphocytes % 9.2 L (19.3-51.7) % Monocytes % 7.5 (4.7-12.5) % Eosinophils % 0.1 L (0.7-5.8) % Basophils % 0.2 (0.1-1.2) % Absolute Granulocytes 17.49 H (1.56-6.13) x10^3/uL Segmented Neutrophils 86 H (34.0-71.1) % Band Neutrophils 3 H (0.0-2.0) % Lymphocytes (Manual) 9 L (19.3-51.7) % Monocytes (Manual) 2 L (4.7-12.5) % Basophils # 0.05 (0.01-0.08) x10^3/uL Platelet Estimate NORMAL (NORMAL) RBC Morphology ABNORMAL Poikilocytosis 1+ Anisocytosis 1+ PT (9.4-12.5) SECONDS INR (0.8-3.0) Sodium 135 (135-145) mmol/L Potassium 4.1 (3.5-5.1) mmol/L Chloride 97 L (98-107) mmol/L Carbon Dioxide 24 (22-30) mmol/L Anion Gap 18.7 H (5-15) MEQ/L BUN 17 (7-17) mg/dL Creatinine 0.63 (0.52-1.04) mg/dL Estimated GFR 91.3 ML/MIN Glucose 145 H (74-106) mg/dL POC Glucometer (74 to 106) mg/dL Hemoglobin A1c (4.5-6.0) % Lactic Acid 1.9 (0.4-2.0) Calcium 8.8 (8.4-10.2) mg/dL Magnesium 2.4 H (1.6-2.3) mg/dL Total Bilirubin 1.20 (0.2-1.3) mg/dL AST 52 H (14-36) U/L ALT 64 H (0-35) U/L Alkaline Phosphatase 128 H (38-126) U/L Troponin I (0.000-0.033) ng/mL NT-Pro-B Natriuret Pep 598 (<300) pg/mL Serum Total Protein 7.0 (6.3-8.2) g/dL Albumin 3.8 (3.5-5.0) g/dL Urine Color (Yellow) Urine Appearance (Clear) Urine pH (4.6-8.0) Ur Specific [place] (1.005-1.030) Urine Protein (Negative) Urine Glucose (UA) (Negative) mg/dL Urine Ketones (Negative) Urine Blood (Negative) Urine Nitrite (Negative) Urine Bilirubin (Negative) Urine Urobilinogen (0.2) mg/dL Ur Leukocyte Esterase (Negative) U Hyaline Cast (Auto) (0-2) /LPF Urine Microscopic RBC (0-5) /HPF Urine Microscopic WBC (0-5) /HPF Ur Epithelial Cells (None Seen) /HPF Urine Bacteria (None Seen) /HPF Urine Culture Reflexed (NO) Digoxin (0.8-1.9) ng/mL Influenza Type A Ag (NEGATIVE) Influenza Type B Ag (NEGATIVE) RSV (PCR) (NEGATIVE) SARS-CoV-2 (PCR) (NEGATIVE) 11/10/24 11/10/24 11/10/24 Range/Units 14:33 14:33 14:38 WBC (3.98-10.04) x10^3/uL RBC (3.93-5.22) x10^6/uL Hgb (11.2-15.7) g/dL Hct (34.1-44.9) % MCV (79.4-94.8) fL MCH (25.6-32.2) pg MCHC (32.2-35.5) g/dL RDW (11.7-14.4) % Plt Count (182-369) x10^3/uL MPV (9.4-12.3) fL Gran % (34.0-71.1) % Immature Gran % (Auto) (0.001-0.429) % Nucleat RBC Rel Count (0.00-0.2) % Eos # (Auto) (0.04-0.36) x10^3/uL Immature Gran # (Auto) (0.001-0.031) x10^3u/L Absolute Lymphs (auto) (1.18-3.74) x10^3/uL Absolute Monos (auto) (0.24-0.86) x10^3/uL Absolute Nucleated RBC (0.00-0.012) x10^3u/L Lymphocytes % (19.3-51.7) % Monocytes % (4.7-12.5) % Eosinophils % (0.7-5.8) % Basophils % (0.1-1.2) % Absolute Granulocytes (1.56-6.13) x10^3/uL Segmented Neutrophils (34.0-71.1) % Band Neutrophils (0.0-2.0) % Lymphocytes (Manual) (19.3-51.7) % Monocytes (Manual) (4.7-12.5) % Basophils # (0.01-0.08) x10^3/uL Platelet Estimate (NORMAL) RBC Morphology Poikilocytosis Anisocytosis PT 16.5 H (9.4-12.5) SECONDS INR 1.56 (0.8-3.0) Sodium (135-145) mmol/L Potassium (3.5-5.1) mmol/L Chloride (98-107) mmol/L Carbon Dioxide (22-30) mmol/L Anion Gap (5-15) MEQ/L BUN (7-17) mg/dL Creatinine (0.52-1.04) mg/dL Estimated GFR ML/MIN Glucose (74-106) mg/dL POC Glucometer (74 to 106) mg/dL Hemoglobin A1c (4.5-6.0) % Lactic Acid (0.4-2.0) Calcium (8.4-10.2) mg/dL Magnesium (1.6-2.3) mg/dL Total Bilirubin (0.2-1.3) mg/dL AST (14-36) U/L ALT (0-35) U/L Alkaline Phosphatase (38-126) U/L Troponin I < 0.012 (0.000-0.033) ng/mL NT-Pro-B Natriuret Pep (<300) pg/mL Serum Total Protein (6.3-8.2) g/dL Albumin (3.5-5.0) g/dL Urine Color Yellow (Yellow) Urine Appearance Clear (Clear) Urine pH 5.5 (4.6-8.0) Ur Specific [place] >=1.030 A (1.005-1.030) Urine Protein Trace A (Negative) Urine Glucose (UA) >=1000 A (Negative) mg/dL Urine Ketones 15 A (Negative) Urine Blood Negative (Negative) Urine Nitrite Negative (Negative) Urine Bilirubin Negative (Negative) Urine Urobilinogen 1.0 A (0.2) mg/dL Ur Leukocyte Esterase Negative (Negative) U Hyaline Cast (Auto) NONE SEEN (0-2) /LPF Urine Microscopic RBC 0-2 (0-5) /HPF Urine Microscopic WBC 0-2 (0-5) /HPF Ur Epithelial Cells None Seen (None Seen) /HPF Urine Bacteria None Seen (None Seen) /HPF Urine Culture Reflexed NO (NO) Digoxin (0.8-1.9) ng/mL Influenza Type A Ag (NEGATIVE) Influenza Type B Ag (NEGATIVE) RSV (PCR) (NEGATIVE) SARS-CoV-2 (PCR) (NEGATIVE) 11/10/24 11/10/24 11/10/24 Range/Units 14:58 16:36 19:30 WBC (3.98-10.04) x10^3/uL RBC (3.93-5.22) x10^6/uL Hgb (11.2-15.7) g/dL Hct (34.1-44.9) % MCV (79.4-94.8) fL MCH (25.6-32.2) pg MCHC (32.2-35.5) g/dL RDW (11.7-14.4) % Plt Count (182-369) x10^3/uL MPV (9.4-12.3) fL Gran % (34.0-71.1) % Immature Gran % (Auto) (0.001-0.429) % Nucleat RBC Rel Count (0.00-0.2) % Eos # (Auto) (0.04-0.36) x10^3/uL Immature Gran # (Auto) (0.001-0.031) x10^3u/L Absolute Lymphs (auto) (1.18-3.74) x10^3/uL Absolute Monos (auto) (0.24-0.86) x10^3/uL Absolute Nucleated RBC (0.00-0.012) x10^3u/L Lymphocytes % (19.3-51.7) % Monocytes % (4.7-12.5) % Eosinophils % (0.7-5.8) % Basophils % (0.1-1.2) % Absolute Granulocytes (1.56-6.13) x10^3/uL Segmented Neutrophils (34.0-71.1) % Band Neutrophils (0.0-2.0) % Lymphocytes (Manual) (19.3-51.7) % Monocytes (Manual) (4.7-12.5) % Basophils # (0.01-0.08) x10^3/uL Platelet Estimate (NORMAL) RBC Morphology Poikilocytosis Anisocytosis PT (9.4-12.5) SECONDS INR (0.8-3.0) Sodium (135-145) mmol/L Potassium (3.5-5.1) mmol/L Chloride (98-107) mmol/L Carbon Dioxide (22-30) mmol/L Anion Gap (5-15) MEQ/L BUN (7-17) mg/dL Creatinine (0.52-1.04) mg/dL Estimated GFR ML/MIN Glucose (74-106) mg/dL POC Glucometer (74 to 106) mg/dL Hemoglobin A1c (4.5-6.0) % Lactic Acid 2.1 H (0.4-2.0) Calcium (8.4-10.2) mg/dL Magnesium (1.6-2.3) mg/dL Total Bilirubin (0.2-1.3) mg/dL AST (14-36) U/L ALT (0-35) U/L Alkaline Phosphatase (38-126) U/L Troponin I < 0.012 (0.000-0.033) ng/mL NT-Pro-B Natriuret Pep (<300) pg/mL Serum Total Protein (6.3-8.2) g/dL Albumin (3.5-5.0) g/dL Urine Color (Yellow) Urine Appearance (Clear) Urine pH (4.6-8.0) Ur Specific [place] (1.005-1.030) Urine Protein (Negative) Urine Glucose (UA) (Negative) mg/dL Urine Ketones (Negative) Urine Blood (Negative) Urine Nitrite (Negative) Urine Bilirubin (Negative) Urine Urobilinogen (0.2) mg/dL Ur Leukocyte Esterase (Negative) U Hyaline Cast (Auto) (0-2) /LPF Urine Microscopic RBC (0-5) /HPF Urine Microscopic WBC (0-5) /HPF Ur Epithelial Cells (None Seen) /HPF Urine Bacteria (None Seen) /HPF Urine Culture Reflexed (NO) Digoxin (0.8-1.9) ng/mL Influenza Type A Ag NEGATIVE (NEGATIVE) Influenza Type B Ag NEGATIVE (NEGATIVE) RSV (PCR) NEGATIVE (NEGATIVE) SARS-CoV-2 (PCR) NEGATIVE (NEGATIVE) 11/10/24 11/10/24 11/10/24 Range/Units 22:19 22:19 23:53 WBC (3.98-10.04) x10^3/uL RBC (3.93-5.22) x10^6/uL Hgb (11.2-15.7) g/dL Hct (34.1-44.9) % MCV (79.4-94.8) fL MCH (25.6-32.2) pg MCHC (32.2-35.5) g/dL RDW (11.7-14.4) % Plt Count (182-369) x10^3/uL MPV (9.4-12.3) fL Gran % (34.0-71.1) % Immature Gran % (Auto) (0.001-0.429) % Nucleat RBC Rel Count (0.00-0.2) % Eos # (Auto) (0.04-0.36) x10^3/uL Immature Gran # (Auto) (0.001-0.031) x10^3u/L Absolute Lymphs (auto) (1.18-3.74) x10^3/uL Absolute Monos (auto) (0.24-0.86) x10^3/uL Absolute Nucleated RBC (0.00-0.012) x10^3u/L Lymphocytes % (19.3-51.7) % Monocytes % (4.7-12.5) % Eosinophils % (0.7-5.8) % Basophils % (0.1-1.2) % Absolute Granulocytes (1.56-6.13) x10^3/uL Segmented Neutrophils (34.0-71.1) % Band Neutrophils (0.0-2.0) % Lymphocytes (Manual) (19.3-51.7) % Monocytes (Manual) (4.7-12.5) % Basophils # (0.01-0.08) x10^3/uL Platelet Estimate (NORMAL) RBC Morphology Poikilocytosis Anisocytosis PT (9.4-12.5) SECONDS INR (0.8-3.0) Sodium (135-145) mmol/L Potassium (3.5-5.1) mmol/L Chloride (98-107) mmol/L Carbon Dioxide (22-30) mmol/L Anion Gap (5-15) MEQ/L BUN (7-17) mg/dL Creatinine (0.52-1.04) mg/dL Estimated GFR ML/MIN Glucose (74-106) mg/dL POC Glucometer 499 H 437 H (74 to 106) mg/dL Hemoglobin A1c (4.5-6.0) % Lactic Acid (0.4-2.0) Calcium (8.4-10.2) mg/dL Magnesium (1.6-2.3) mg/dL Total Bilirubin (0.2-1.3) mg/dL AST (14-36) U/L ALT (0-35) U/L Alkaline Phosphatase (38-126) U/L Troponin I < 0.012 (0.000-0.033) ng/mL NT-Pro-B Natriuret Pep (<300) pg/mL Serum Total Protein (6.3-8.2) g/dL Albumin (3.5-5.0) g/dL Urine Color (Yellow) Urine Appearance (Clear) Urine pH (4.6-8.0) Ur Specific [place] (1.005-1.030) Urine Protein (Negative) Urine Glucose (UA) (Negative) mg/dL Urine Ketones (Negative) Urine Blood (Negative) Urine Nitrite (Negative) Urine Bilirubin (Negative) Urine Urobilinogen (0.2) mg/dL Ur Leukocyte Esterase (Negative) U Hyaline Cast (Auto) (0-2) /LPF Urine Microscopic RBC (0-5) /HPF Urine Microscopic WBC (0-5) /HPF Ur Epithelial Cells (None Seen) /HPF Urine Bacteria (None Seen) /HPF Urine Culture Reflexed (NO) Digoxin (0.8-1.9) ng/mL Influenza Type A Ag (NEGATIVE) Influenza Type B Ag (NEGATIVE) RSV (PCR) (NEGATIVE) SARS-CoV-2 (PCR) (NEGATIVE) 11/10/24 11/11/24 11/11/24 Range/Units Unknown 03:50 03:56 WBC (3.98-10.04) x10^3/uL RBC (3.93-5.22) x10^6/uL Hgb (11.2-15.7) g/dL Hct (34.1-44.9) % MCV (79.4-94.8) fL MCH (25.6-32.2) pg MCHC (32.2-35.5) g/dL RDW (11.7-14.4) % Plt Count (182-369) x10^3/uL MPV (9.4-12.3) fL Gran % (34.0-71.1) % Immature Gran % (Auto) (0.001-0.429) % Nucleat RBC Rel Count (0.00-0.2) % Eos # (Auto) (0.04-0.36) x10^3/uL Immature Gran # (Auto) (0.001-0.031) x10^3u/L Absolute Lymphs (auto) (1.18-3.74) x10^3/uL Absolute Monos (auto) (0.24-0.86) x10^3/uL Absolute Nucleated RBC (0.00-0.012) x10^3u/L Lymphocytes % (19.3-51.7) % Monocytes % (4.7-12.5) % Eosinophils % (0.7-5.8) % Basophils % (0.1-1.2) % Absolute Granulocytes (1.56-6.13) x10^3/uL Segmented Neutrophils (34.0-71.1) % Band Neutrophils (0.0-2.0) % Lymphocytes (Manual) (19.3-51.7) % Monocytes (Manual) (4.7-12.5) % Basophils # (0.01-0.08) x10^3/uL Platelet Estimate (NORMAL) RBC Morphology Poikilocytosis Anisocytosis PT (9.4-12.5) SECONDS INR (0.8-3.0) Sodium (135-145) mmol/L Potassium (3.5-5.1) mmol/L Chloride (98-107) mmol/L Carbon Dioxide (22-30) mmol/L Anion Gap (5-15) MEQ/L BUN (7-17) mg/dL Creatinine (0.52-1.04) mg/dL Estimated GFR ML/MIN Glucose (74-106) mg/dL POC Glucometer 297 H (74 to 106) mg/dL Hemoglobin A1c (4.5-6.0) % Lactic Acid 1.8 (0.4-2.0) Calcium (8.4-10.2) mg/dL Magnesium (1.6-2.3) mg/dL Total Bilirubin (0.2-1.3) mg/dL AST (14-36) U/L ALT (0-35) U/L Alkaline Phosphatase (38-126) U/L Troponin I (0.000-0.033) ng/mL NT-Pro-B Natriuret Pep (<300) pg/mL Serum Total Protein (6.3-8.2) g/dL Albumin (3.5-5.0) g/dL Urine Color (Yellow) Urine Appearance (Clear) Urine pH (4.6-8.0) Ur Specific [place] (1.005-1.030) Urine Protein (Negative) Urine Glucose (UA) (Negative) mg/dL Urine Ketones (Negative) Urine Blood (Negative) Urine Nitrite (Negative) Urine Bilirubin (Negative) Urine Urobilinogen (0.2) mg/dL Ur Leukocyte Esterase (Negative) U Hyaline Cast (Auto) (0-2) /LPF Urine Microscopic RBC (0-5) /HPF Urine Microscopic WBC (0-5) /HPF Ur Epithelial Cells (None Seen) /HPF Urine Bacteria (None Seen) /HPF Urine Culture Reflexed (NO) Digoxin 0.8 (0.8-1.9) ng/mL Influenza Type A Ag (NEGATIVE) Influenza Type B Ag (NEGATIVE) RSV (PCR) (NEGATIVE) SARS-CoV-2 (PCR) (NEGATIVE) 11/11/24 11/11/24 11/11/24 Range/Units 04:42 04:42 04:42 WBC 17.3 H (3.98-10.04) x10^3/uL RBC 5.07 (3.93-5.22) x10^6/uL Hgb 14.2 (11.2-15.7) g/dL Hct 42.4 (34.1-44.9) % MCV 83.6 (79.4-94.8) fL MCH 28.0 (25.6-32.2) pg MCHC 33.5 (32.2-35.5) g/dL RDW 13.6 (11.7-14.4) % Plt Count 395 H (182-369) x10^3/uL MPV 9.9 (9.4-12.3) fL Gran % 89.9 H (34.0-71.1) % Immature Gran % (Auto) 2.3 H (0.001-0.429) % Nucleat RBC Rel Count 0.0 (0.00-0.2) % Eos # (Auto) 0 L (0.04-0.36) x10^3/uL Immature Gran # (Auto) 0.39 H (0.001-0.031) x10^3u/L Absolute Lymphs (auto) 1.09 L (1.18-3.74) x10^3/uL Absolute Monos (auto) 0.23 L (0.24-0.86) x10^3/uL Absolute Nucleated RBC 0.00 (0.00-0.012) x10^3u/L Lymphocytes % 6.3 L (19.3-51.7) % Monocytes % 1.3 L (4.7-12.5) % Eosinophils % 0.0 L (0.7-5.8) % Basophils % 0.2 (0.1-1.2) % Absolute Granulocytes 15.55 H (1.56-6.13) x10^3/uL Segmented Neutrophils (34.0-71.1) % Band Neutrophils (0.0-2.0) % Lymphocytes (Manual) (19.3-51.7) % Monocytes (Manual) (4.7-12.5) % Basophils # 0.04 (0.01-0.08) x10^3/uL Platelet Estimate (NORMAL) RBC Morphology Poikilocytosis Anisocytosis PT (9.4-12.5) SECONDS INR (0.8-3.0) Sodium 135 (135-145) mmol/L Potassium 3.9 (3.5-5.1) mmol/L Chloride 97 L (98-107) mmol/L Carbon Dioxide 22 (22-30) mmol/L Anion Gap 19.4 H (5-15) MEQ/L BUN 28 H (7-17) mg/dL Creatinine 0.85 (0.52-1.04) mg/dL Estimated GFR 70.5 ML/MIN Glucose 290 H (74-106) mg/dL POC Glucometer (74 to 106) mg/dL Hemoglobin A1c 12.08 H (4.5-6.0) % Lactic Acid (0.4-2.0) Calcium 8.6 (8.4-10.2) mg/dL Magnesium (1.6-2.3) mg/dL Total Bilirubin 0.80 (0.2-1.3) mg/dL AST 131 H (14-36) U/L ALT 103 H (0-35) U/L Alkaline Phosphatase 130 H (38-126) U/L Troponin I (0.000-0.033) ng/mL NT-Pro-B Natriuret Pep 680 (<300) pg/mL Serum Total Protein 7.5 (6.3-8.2) g/dL Albumin 4.0 (3.5-5.0) g/dL Urine Color (Yellow) Urine Appearance (Clear) Urine pH (4.6-8.0) Ur Specific [place] (1.005-1.030) Urine Protein (Negative) Urine Glucose (UA) (Negative) mg/dL Urine Ketones (Negative) Urine Blood (Negative) Urine Nitrite (Negative) Urine Bilirubin (Negative) Urine Urobilinogen (0.2) mg/dL Ur Leukocyte Esterase (Negative) U Hyaline Cast (Auto) (0-2) /LPF Urine Microscopic RBC (0-5) /HPF Urine Microscopic WBC (0-5) /HPF Ur Epithelial Cells (None Seen) /HPF Urine Bacteria (None Seen) /HPF Urine Culture Reflexed (NO) Digoxin (0.8-1.9) ng/mL Influenza Type A Ag (NEGATIVE) Influenza Type B Ag (NEGATIVE) RSV (PCR) (NEGATIVE) SARS-CoV-2 (PCR) (NEGATIVE) 11/11/24 Range/Units 07:52 WBC (3.98-10.04) x10^3/uL RBC (3.93-5.22) x10^6/uL Hgb (11.2-15.7) g/dL Hct (34.1-44.9) % MCV (79.4-94.8) fL MCH (25.6-32.2) pg MCHC (32.2-35.5) g/dL RDW (11.7-14.4) % Plt Count (182-369) x10^3/uL MPV (9.4-12.3) fL Gran % (34.0-71.1) % Immature Gran % (Auto) (0.001-0.429) % Nucleat RBC Rel Count (0.00-0.2) % Eos # (Auto) (0.04-0.36) x10^3/uL Immature Gran # (Auto) (0.001-0.031) x10^3u/L Absolute Lymphs (auto) (1.18-3.74) x10^3/uL Absolute Monos (auto) (0.24-0.86) x10^3/uL Absolute Nucleated RBC (0.00-0.012) x10^3u/L Lymphocytes % (19.3-51.7) % Monocytes % (4.7-12.5) % Eosinophils % (0.7-5.8) % Basophils % (0.1-1.2) % Absolute Granulocytes (1.56-6.13) x10^3/uL Segmented Neutrophils (34.0-71.1) % Band Neutrophils (0.0-2.0) % Lymphocytes (Manual) (19.3-51.7) % Monocytes (Manual) (4.7-12.5) % Basophils # (0.01-0.08) x10^3/uL Platelet Estimate (NORMAL) RBC Morphology Poikilocytosis Anisocytosis PT (9.4-12.5) SECONDS INR (0.8-3.0) Sodium (135-145) mmol/L Potassium (3.5-5.1) mmol/L Chloride (98-107) mmol/L Carbon Dioxide (22-30) mmol/L Anion Gap (5-15) MEQ/L BUN (7-17) mg/dL Creatinine (0.52-1.04) mg/dL Estimated GFR ML/MIN Glucose (74-106) mg/dL POC Glucometer 269 H (74 to 106) mg/dL Hemoglobin A1c (4.5-6.0) % Lactic Acid (0.4-2.0) Calcium (8.4-10.2) mg/dL Magnesium (1.6-2.3) mg/dL Total Bilirubin (0.2-1.3) mg/dL AST (14-36) U/L ALT (0-35) U/L Alkaline Phosphatase (38-126) U/L Troponin I (0.000-0.033) ng/mL NT-Pro-B Natriuret Pep (<300) pg/mL Serum Total Protein (6.3-8.2) g/dL Albumin (3.5-5.0) g/dL Urine Color (Yellow) Urine Appearance (Clear) Urine pH (4.6-8.0) Ur Specific [place] (1.005-1.030) Urine Protein (Negative) Urine Glucose (UA) (Negative) mg/dL Urine Ketones (Negative) Urine Blood (Negative) Urine Nitrite (Negative) Urine Bilirubin (Negative) Urine Urobilinogen (0.2) mg/dL Ur Leukocyte Esterase (Negative) U Hyaline Cast (Auto) (0-2) /LPF Urine Microscopic RBC (0-5) /HPF Urine Microscopic WBC (0-5) /HPF Ur Epithelial Cells (None Seen) /HPF Urine Bacteria (None Seen) /HPF Urine Culture Reflexed (NO) Digoxin (0.8-1.9) ng/mL Influenza Type A Ag (NEGATIVE) Influenza Type B Ag (NEGATIVE) RSV (PCR) (NEGATIVE) SARS-CoV-2 (PCR) (NEGATIVE) Radiology Exams: Radiology Procedures Category Date Time Status CHEST 1 VIEW (PORTABLE) Stat Exams 11/10/24 14:24 Completed Assessment/Plan (1) Pneumonia Current Visit: Yes Status: Acute Qualifiers: Laterality: right Code(s): J18.9 - PNEUMONIA, UNSPECIFIED ORGANISM (2) Type II diabetes mellitus Current Visit: Yes Status: Acute Qualifiers: Diabetes mellitus nursing home insulin use: without nursing home use Diabetes mellitus complication status: without complication Qualified Code(s): E11.9 - Type 2 diabetes mellitus without complications (3) Hypoxia Current Visit: Yes Status: Acute Code(s): R09.02 - HYPOXEMIA (4) Leukocytosis Current Visit: Yes Status: Acute Code(s): D72.829 - ELEVATED WHITE BLOOD CELL COUNT, UNSPECIFIED (5) HTN (hypertension) Current Visit: Yes Status: Chronic Qualifiers: Hypertension type: primary hypertension Qualified Code(s): I10 - Essential (primary) hypertension Code(s): I10 - ESSENTIAL (PRIMARY) HYPERTENSION (6) Hyperlipidemia Current Visit: Yes Status: Chronic Code(s): E78.5 - HYPERLIPIDEMIA, UNSPECIFIED (7) Current use of senior bioinformatics scientist anticoagulation Current Visit: Yes Status: Chronic Code(s): Z79.01 - DOUBLING MACHINE OPERATOR (CURRENT) USE OF ANTICOAGULANTS (8) Obesity (BMI 30-39.9) Current Visit: Yes Status: Chronic Assessment & Plan: (1) Pneumonia Current Visit: Yes Status: Acute Qualifiers: Laterality: right Assessment & Plan: - CXR reviewed - Sputum and BC x2 pending - O2 2lNC 94%- baseline RA - antibiotics, steroids, duonebs. - Tele - CBC, CMP reviewed - Flu/COVID/RSV negative - WBC 21.5 11/11 - WBC 17.3- improved - CBC, CMP reviewed - O2 3lNC 95% Code(s): J18.9 - PNEUMONIA, UNSPECIFIED ORGANISM (2) Type II diabetes mellitus Current Visit: Yes Status: Acute Qualifiers: Diabetes mellitus nursing home insulin use: without nursing home use Diabetes mellitus complication status: without complication Qualified Code(s): E11.9 - Type 2 diabetes mellitus without complications Assessment & Plan: - A1C 12.08- uncontrolled - Continue home meds - Accuchecks ac/hs - Humalog S/S 11/11 - Start insulin teaching IP- by nursing - Detialed Diabetic education provided - to order accucheck machine for home - added Humalog 10 units with meals (3) Hypoxia Current Visit: Yes Status: Acute Assessment & Plan: - 2:2 pneumonia - See plan above Code(s): R09.02 - HYPOXEMIA (4) Leukocytosis Current Visit: Yes Status: Acute Assessment & Plan: - 2:2 pneumonia - WBC 21.5- trend 11/11 - WBC 17.3- trend Code(s): D72.829 - ELEVATED WHITE BLOOD CELL COUNT, UNSPECIFIED (5) HTN (hypertension) Current Visit: Yes Status: Chronic Qualifiers: Hypertension type: primary hypertension Qualified Code(s): I10 - Essential (primary) hypertension Assessment & Plan: - BP stable - Continue home meds Code(s): I10 - ESSENTIAL (PRIMARY) HYPERTENSION (6) Hyperlipidemia Current Visit: Yes Status: Chronic Assessment & Plan: - Continue statin Code(s): E78.5 - HYPERLIPIDEMIA, UNSPECIFIED (7) Current use of nursing home anticoagulation Current Visit: Yes Status: Chronic Assessment & Plan: - Pharmacy to dose coumadin - warfarin - INR today 1.56- subtherapeutic 11/11 - PT/INR pending Code(s): Z79.01 - CUSTODIAL (CURRENT) USE OF ANTICOAGULANTS (8) Obesity (BMI 30-39.9) Current Visit: Yes Status: Chronic Assessment & Plan: - Advised ADA diet and exercise control Code(s): E66.9 - OBESITY, UNSPECIFIED Code(s): E66.9 - OBESITY, UNSPECIFIED (9) Diarrhea Current Visit: Yes Status: Chronic Assessment & Plan: - c-diff pending - Pt asked for pepto- bismol and unable to give as it affects coumadin level Code(s): R19.7 - DIARRHEA, UNSPECIFIED (10) Sepsis Current Visit: Yes Status: Acute Qualifiers: Severe sepsis acute organ dysfunction type: acute respiratory failure Acute respiratory failure type: with hypoxia Severe sepsis shock status: without septic shock Assessment & Plan: - WBC 21.5 on admission - acute hypoxia 2:2 pneumonia- see plan above - Lactic acid 2.1- IVF gave in ER - HR > 90, Resp > 20 on admission - 3lNC 95% - BC x2 and sputum culture 11/11 - LA 1.8 today - WBC improved 17.3 - On 3lNC 95%- baseline RA - BC x2 and sputum culture pending - see pneumonia plan VTE: Warfarin PPI: Protonix Next of KIN: Code status: Full D/C plan: 1-2 days
[2024-11-11] MEDS: Protonix 20MG Tablet PO SCH (09:18)
[2024-11-11] MEDS: JARDIANCE PO SCH (09:19)
[2024-11-11] MEDS: ZITHROMAX IV*** 500 MG in Sodium Chloride 0.9% 250 ML 250 ML IV SCH (09:20)
[2024-11-11 09:39] LABS: INR 1.59 (0.8-3.0); PROTIME 16.8 SECONDS (9.4-12.5)
[2024-11-11] MEDS ORDERED: NON-FORMULARY ITEM (Amlodipine Besylate [Norvasc] 10 MG Tablet) PO SCH (10:00)
[2024-11-11] MEDS ORDERED: NON-FORMULARY ITEM (Losartan Potassium [Cozaar] 100 MG Tablet) PO SCH (10:00)
[2024-11-11] MEDS: Acidophilus TABLET PO SCH (10:43)
[2024-11-11] MEDS: HUMALOG SQ SCH (12:16)
[2024-11-11] MEDS: PHARMACY RENAL DOSING MC ONE (13:33)
[2024-11-11] MEDS: Coumadin 2 MG PO ONE (17:27)
[2024-11-11] MEDS ORDERED: COUMADIN PO SCH ×2 (18:00→19:41)
[2024-11-11] MEDS ORDERED: Coumadin 3 MG PO SCH (18:00)
[2024-11-11] MEDS: ZOCOR 20MG PO SCH (20:28)
[2024-11-12 05:29] LABS: Hematocrit 41.6 % (34.1-44.9); Hemoglobin 13.7 g/dL (11.2-15.7); Mean Cell Volume 84.6 fL (79.4-94.8); Mean Corpuscular Hemoglobin 27.8 pg (25.6-32.2); Mean Corpuscular Hgb Concent. 32.9 g/dL (32.2-35.5); Mean Platelet Volume 9.9 fL (9.4-12.3); Platelet Count 433 x10^3/uL (182-369); Red Blood Count 4.92 x10^6/uL (3.93-5.22); Red Cell Distribution Width 13.7 % (11.7-14.4); White Blood Count 19.2 x10^3/uL (3.98-10.04)
[2024-11-12 05:49] LABS: ALBUMIN 3.8 g/dL (3.5-5.0); ANION GAP 20.3 MEQ/L (5-15); BILIRUBIN,TOTAL 0.7 mg/dL (0.2-1.3); Calcium 8.6 mg/dL (8.4-10.2); Creatinine 1 0.76 mg/dL (0.52-1.04); EST GLOMERULAR FILTRATION RATE 80.7 ML/MIN; INR 1.84 (0.8-3.0); PROTIME 19.3 SECONDS (9.4-12.5); Potassium 4.3 mmol/L (3.5-5.1); Total Protein 7.3 g/dL (6.3-8.2)
[2024-11-12] MEDS ORDERED: D50W 50 ml Abboject IV PRN (07:25)
[2024-11-12] MEDS ORDERED: Glutose 15 GM ORAL GEL PO PRN (07:25)
[2024-11-12] MEDS: Lantus Insulin SQ SCH (08:45)
[2024-11-12] MEDS: SODIUM BICARBONATE PO SCH (08:57)
--- NOTE | 2024-11-12 11:11 | PCM.NOTE ---
Date and Time: 11/12/24 1106 Subjective Assessment: 11/10/24 is a 79 year old female with PMHX of of hypertension, hyperlipidemia, diabetes, is on digoxin and Coumadin for her arrhythmia. She presented to the emergency department with a complaint of shortness of breath and weakness. The patient has not been feeling well for the last couple of weeks. She went to see Dr. Callejas in his office and her room air oxygen saturation level was in the 80s. Therefore she was sent to the emergency department for further evaluation management. On arrival to the emergency department her room her oxygen saturation level here was 88%. She has a productive cough of greenish sputum. In the ER she was started on antibiotics, steriods, and dunebs for pneumonia as seen on the CXR. Will continue same plan of care. She is on 2lNC 92 % and baseline is room air. She states she is starting to feel better after ER breathing treatment. She has continued coarse lung sounds throughout. She denies CP, Abd. pain, N/V/D. 11/11/24 Pt sitting up in bed. She states she is starting to feel better today. WBC improving at 17.3. Continue antibiotics, steroids, and duonebs for pneumonia. A1C 12.08 and discussed better diabetic control via diet and exercise. Discussed to look at feet thoroughly daily to access for wounds, and to f/u with PCP if she see;s anything concerning. Will need to d/c with insulin. Case management to help with obtaining glucometer for home. Nurse advised to provide diabetic insulin teaching. Lactic acid WNL today. LFT's elevated likely 2:2 sepsis. She denies CP, abd. pain, N/V/D. She has continued SOB and coarse lung sounds on the right side. 11/12/24 Pt sittign up in bed. She reports she continues to not feel well. She is re quiring 2lNC 95%, baseline room air. Sputum culture back and reviewed. Continue antibiotics per sensitivity results.Co2 19 and oral sodium bicarb started. INR 1.84, pharmacy managing warfarin. Lantus BID added as glucose remains elevated. Pt states she does not understand education provided by nutrition. Will ask Thursday if legal summer intern can again explain education with pt. Nurses continue to educate insulin and accuchecks. Pt agreeable to OP education. She denies CP, abd. pain, N/V/D. - Review of Systems Constitutional: No Fever, No Chills Eyes: No Symptoms Ears, Nose, & Throat: No Symptoms Respiratory: Short Of Breath, No Cough Cardiac: No Chest Pain, No Edema, No Syncope Abdominal/Gastrointestinal: No Abdominal Pain, No Nausea, No Vomiting, No Diarrhea Genitourinary Symptoms: No Dysuria Musculoskeletal: No Back Pain, No Neck Pain Skin: No Rash Neurological: No Dizziness, No Focal Weakness, No Sensory Changes Psychological: No Symptoms Endocrine: No Symptoms Hematologic/Lymphatic: No Symptoms Immunological/Allergic: No Symptoms Objective Exam General Appearance: no apparent distress, alert, obese Neurologic Exam: alert, oriented x 3, cooperative, normal mood/affect, nml cerebellar function, sensation nml, No motor deficits Skin Exam: normal color, warm, dry Eye Exam: PERRL, EOMI, eyes nml inspection Ears, Nose, Throat Exam: normal ENT inspection, pharynx normal, moist mucous membranes Neck Exam: normal inspection, non-tender, supple, full range of motion Respiratory Exam: rhonchi, wheezing, No respiratory distress Cardiovascular Exam: regular rate/rhythm, normal heart sounds Gastrointestinal/Abdomen Exam: soft, No tenderness, No mass Extremity Exam: normal inspection, normal range of motion Back Exam: normal inspection, normal range of motion, No CVA tenderness, No vertebral tenderness Pelvic Exam: deferred Rectal Exam: deferred Objective Data Vital Signs: Vital Signs - 24 hr Temp Pulse Resp BP BP Pulse Ox 11/12/24 10:54 93 H 18 92 L 11/12/24 08:56 73 162/108 11/12/24 07:37 97.1 F 73 18 111/56 95 11/12/24 06:50 73 18 95 11/12/24 04:00 97.7 F 91 H 18 139/73 93 L 11/12/24 00:00 97.2 F 70 16 126/73 94 L 11/11/24 19:45 97.1 F 61 17 138/74 92 L 11/11/24 18:26 66 18 94 L 11/11/24 16:00 97.7 F 76 18 176/81 94 L 11/11/24 15:16 86 18 94 L 11/11/24 12:00 97.6 F 88 18 119/56 94 L 11/11/24 11:17 72 18 93 L Pain Assessment - Last Documented Pain Intensity 0 Intake and Output: Intake & Output 11/09/24 11/10/24 11/11/24 11/12/24 11:59 11:59 11:59 11:59 Intake Total 600 2600 Balance 600 2600 Weight 95.4 kg Lab Results: Lab Results-Last 24 Hours 11/11/24 11/11/24 11/11/24 Range/Units 12:05 16:06 20:51 WBC (3.98-10.04) x10^3/uL RBC (3.93-5.22) x10^6/uL Hgb (11.2-15.7) g/dL Hct (34.1-44.9) % MCV (79.4-94.8) fL MCH (25.6-32.2) pg MCHC (32.2-35.5) g/dL RDW (11.7-14.4) % Plt Count (182-369) x10^3/uL MPV (9.4-12.3) fL PT (9.4-12.5) SECONDS INR (0.8-3.0) Sodium (135-145) mmol/L Potassium (3.5-5.1) mmol/L Chloride (98-107) mmol/L Carbon Dioxide (22-30) mmol/L Anion Gap (5-15) MEQ/L BUN (7-17) mg/dL Creatinine (0.52-1.04) mg/dL Estimated GFR ML/MIN Glucose (74-106) mg/dL POC Glucometer 412 H 361 H 276 H (74 to 106) mg/dL Calcium (8.4-10.2) mg/dL Total Bilirubin (0.2-1.3) mg/dL AST (14-36) U/L ALT (0-35) U/L Alkaline Phosphatase (38-126) U/L Serum Total Protein (6.3-8.2) g/dL Albumin (3.5-5.0) g/dL 11/12/24 11/12/24 11/12/24 Range/Units 05:25 05:25 05:25 WBC 19.2 H (3.98-10.04) x10^3/uL RBC 4.92 (3.93-5.22) x10^6/uL Hgb 13.7 (11.2-15.7) g/dL Hct 41.6 (34.1-44.9) % MCV 84.6 (79.4-94.8) fL MCH 27.8 (25.6-32.2) pg MCHC 32.9 (32.2-35.5) g/dL RDW 13.7 (11.7-14.4) % Plt Count 433 H (182-369) x10^3/uL MPV 9.9 (9.4-12.3) fL PT 19.3 H (9.4-12.5) SECONDS INR 1.84 (0.8-3.0) Sodium 135 (135-145) mmol/L Potassium 4.3 (3.5-5.1) mmol/L Chloride 100 (98-107) mmol/L Carbon Dioxide 19 L (22-30) mmol/L Anion Gap 20.3 H (5-15) MEQ/L BUN 43 H (7-17) mg/dL Creatinine 0.76 (0.52-1.04) mg/dL Estimated GFR 80.7 ML/MIN Glucose 268 H (74-106) mg/dL POC Glucometer (74 to 106) mg/dL Calcium 8.6 (8.4-10.2) mg/dL Total Bilirubin 0.70 (0.2-1.3) mg/dL AST 114 H (14-36) U/L ALT 130 H (0-35) U/L Alkaline Phosphatase 122 (38-126) U/L Serum Total Protein 7.3 (6.3-8.2) g/dL Albumin 3.8 (3.5-5.0) g/dL 11/12/24 Range/Units 07:06 WBC (3.98-10.04) x10^3/uL RBC (3.93-5.22) x10^6/uL Hgb (11.2-15.7) g/dL Hct (34.1-44.9) % MCV (79.4-94.8) fL MCH (25.6-32.2) pg MCHC (32.2-35.5) g/dL RDW (11.7-14.4) % Plt Count (182-369) x10^3/uL MPV (9.4-12.3) fL PT (9.4-12.5) SECONDS INR (0.8-3.0) Sodium (135-145) mmol/L Potassium (3.5-5.1) mmol/L Chloride (98-107) mmol/L Carbon Dioxide (22-30) mmol/L Anion Gap (5-15) MEQ/L BUN (7-17) mg/dL Creatinine (0.52-1.04) mg/dL Estimated GFR ML/MIN Glucose (74-106) mg/dL POC Glucometer 239 H (74 to 106) mg/dL Calcium (8.4-10.2) mg/dL Total Bilirubin (0.2-1.3) mg/dL AST (14-36) U/L ALT (0-35) U/L Alkaline Phosphatase (38-126) U/L Serum Total Protein (6.3-8.2) g/dL Albumin (3.5-5.0) g/dL Radiology Exams: Radiology Procedures Category Date Time Status CHEST 1 VIEW (PORTABLE) Stat Exams 11/10/24 14:24 Completed Multi-Disciplinary Progress Notes: Multi-Disciplinary Progress Notes 11/11/24 13:16 Case Management Note by Kandace Choudhury IF O2 NEEDED AT DC- PATIENT WOULD LIKE TO USE [facility]. PETROPHYSICIST GIVEN PAPER ORDER AND INSTRUCTIONS FOR WEEKEND Initialized on 11/11/24 13:16 - END OF NOTE 11/11/24 13:10 Case Management Note by Kandace Choudhury S/W ERIKA FABIAN- GLUCOMETER, STRIPS AND LANCETS ALL WENT THRU AT $0 COPAY AT DC- IF INSULIN ORDERED- AFTER RX SENT TO PHARMACY - NURSE WILL NEED TO CALL TO BE SURE INSURANCE COVERED APPROPRIATELY. WILL NEED RX FOR INSULIN AND NEEDLES Initialized on 11/11/24 13:10 - END OF NOTE Assessment/Plan (1) Pneumonia Current Visit: Yes Status: Acute Qualifiers: Laterality: right Code(s): J18.9 - PNEUMONIA, UNSPECIFIED ORGANISM (2) Type II diabetes mellitus Current Visit: Yes Status: Acute Qualifiers: Diabetes mellitus halfway insulin use: without halfway use Diabetes mellitus complication status: without complication Qualified Code(s): E11.9 - Type 2 diabetes mellitus without complications (3) Hypoxia Current Visit: Yes Status: Acute Code(s): R09.02 - HYPOXEMIA (4) Leukocytosis Current Visit: Yes Status: Acute Code(s): D72.829 - ELEVATED WHITE BLOOD CELL COUNT, UNSPECIFIED (5) HTN (hypertension) Current Visit: Yes Status: Chronic Qualifiers: Hypertension type: primary hypertension Qualified Code(s): I10 - Essential (primary) hypertension Code(s): I10 - ESSENTIAL (PRIMARY) HYPERTENSION (6) Hyperlipidemia Current Visit: Yes Status: Chronic Code(s): E78.5 - HYPERLIPIDEMIA, UNSPECIFIED (7) Current use of director long term care anticoagulation Current Visit: Yes Status: Chronic Code(s): Z79.01 - [employer] (CURRENT) USE OF ANTICOAGULANTS (8) Obesity (BMI 30-39.9) Current Visit: Yes Status: Chronic Code(s): E66.9 - OBESITY, UNSPECIFIED (9) Diarrhea Current Visit: Yes Status: Chronic Code(s): R19.7 - DIARRHEA, UNSPECIFIED (10) Sepsis Current Visit: Yes Status: Acute Qualifiers: Severe sepsis acute organ dysfunction type: acute respiratory failure Acute respiratory failure type: with hypoxia Severe sepsis shock status: without septic shock Assessment & Plan: (1) Pneumonia Current Visit: Yes Status: Acute Qualifiers: Laterality: right Assessment & Plan: - CXR reviewed - Sputum and BC x2 pending - O2 2lNC 94%- baseline RA - antibiotics, steroids, duonebs. - Tele - CBC, CMP reviewed - Flu/COVID/RSV negative - WBC 21.5 11/11 - WBC 17.3- improved - CBC, CMP reviewed - O2 3lNC 95% 11/12 - WBC 19.2 - sputum culture reviewed - BCX 2 negative - CBC reviewed - 2lNC 95%- baseline room air Code(s): J18.9 - PNEUMONIA, UNSPECIFIED ORGANISM (2) Type II diabetes mellitus Current Visit: Yes Status: Acute Qualifiers: Diabetes mellitus director long term care insulin use: without halfway use Diabetes mellitus complication status: without complication Qualified Code(s): E11.9 - Type 2 diabetes mellitus without complications Assessment & Plan: - A1C 12.08- uncontrolled - Continue home meds - Accuchecks ac/hs - Humalog S/S 11/11 - Start insulin teaching IP- by nursing - Detailed Diabetic education provided - to order accucheck machine for home - added Humalog 10 units with meals 11/12 - Added Lantus 15 units BID - Pt to f/u with education classes OP - Will need to ask legal summer intern to speak with pt again Thursday - Nursing to continue with education for home insulin training (3) Hypoxia Current Visit: Yes Status: Acute Assessment & Plan: - 2:2 pneumonia - See plan above Code(s): R09.02 - HYPOXEMIA (4) Leukocytosis Current Visit: Yes Status: Acute Assessment & Plan: - 2:2 pneumonia - WBC 21.5- trend 11/11 - WBC 17.3- trend 11/12 - WBC 19.2 - may be 2;2 steroids Code(s): D72.829 - ELEVATED WHITE BLOOD CELL COUNT, UNSPECIFIED (5) HTN (hypertension) Current Visit: Yes Status: Chronic Qualifiers: Hypertension type: primary hypertension Qualified Code(s): I10 - Essential (primary) hypertension Assessment & Plan: - BP stable - Continue home meds Code(s): I10 - ESSENTIAL (PRIMARY) HYPERTENSION (6) Hyperlipidemia Current Visit: Yes Status: Chronic Assessment & Plan: - Continue statin Code(s): E78.5 - HYPERLIPIDEMIA, UNSPECIFIED (7) Current use of director long term care anticoagulation Current Visit: Yes Status: Chronic Assessment & Plan: - Pharmacy to dose coumadin - warfarin - INR today 1.56- subtherapeutic 11/11 - INR 1.59 11/12 - INR 1.84- improving - pharmacy managing Code(s): Z79.01 - [employer] (CURRENT) USE OF ANTICOAGULANTS (8) Obesity (BMI 30-39.9) Current Visit: Yes Status: Chronic Assessment & Plan: - Advised ADA diet and exercise control Code(s): E66.9 - OBESITY, UNSPECIFIED (9) Diarrhea Current Visit: Yes Status: Chronic Assessment & Plan: - c-diff pending - Pt asked for pepto- bismol and unable to give as it affects coumadin level - probiotics 11/12 - C-diff not collected yet as diarrhea has resolved with probiotics Code(s): R19.7 - DIARRHEA, UNSPECIFIED (10) Sepsis Current Visit: Yes Status: Acute Qualifiers: Severe sepsis acute organ dysfunction type: acute respiratory failure Acute respiratory failure type: with hypoxia Severe sepsis shock status: without septic shock Assessment & Plan: - WBC 21.5 on admission - acute hypoxia 2:2 pneumonia- see plan above - Lactic acid 2.1- IVF gave in ER - HR > 90, Resp > 20 on admission - 3lNC 95% - BC x2 and sputum culture 11/11 - LA 1.8 today - WBC improved 17.3 - On 3lNC 95%- baseline RA - BC x2 and sputum culture pending - see pneumonia plan 11/12 - BC x2 negative - Sputum culture + for Raoutella Kleb Ornithinolytica and Morganella Morgani Ssp Sreedhar - Consider ID referral OP - Continue IV antibiotic - Continue good glycemic control VTE: Warfarin PPI: Protonix Next of KIN: Code status: Full D/C plan: 1-2 days
--- NOTE | 2024-11-12 13:00 | XRAY ---
CLINICAL HISTORY: Continued SOB COMPARISON: No TECHNIQUE: X-ray images of the chest were obtained in posteroanterior (PA) and lateral projections. FINDINGS: Pulmonary Parenchyma: Increased bronchovascular markings seen in the lung jean bilaterally suggest infective?bronchitic changes versus mild congestion Findings are slightly more marked in the right lung middle and lower zones An indistinct right costophrenic angle could be due to streak of pleural fluid or minimal pleural thickening A horizontal small linear band seen across the left costophrenic angle could be plate atelectasis versus reticular fibrotic band Heart and Mediastinum: Heart size and shape are normal. No mediastinal widening or masses. No hilar or mediastinal lymphadenopathy. Bony Thorax: mild degenerative changes seen in the thoracic spine Soft Tissues: Soft tissues overlying the chest wall are unremarkable. IMPRESSION: 1. Increased bronchovascular markings seen in the lung jean bilaterally suggests infective bronchitic changes versus mild congestion, more so in the right lung mid and lower zones 2. An indistinct right costophrenic angle could be due to streak of pleural fluid or minimal pleural thickening 3. A horizontal small linear band seen across the left costophrenic angle could be plate atelectasis versus reticular fibrotic band 4. Clinical and lab correlation advised Electronically Signed by: Levy Terry MD. (11/12/2024 12:55:29 EDT)
[2024-11-12] MEDS: TYLENOL 325 MG PO PRN (16:29)
[2024-11-12] MEDS: Coumadin 2 MG PO SCH (17:39)
[2024-11-13 06:20] LABS: Hematocrit 41.5 % (34.1-44.9); Hemoglobin 13.7 g/dL (11.2-15.7); Mean Corpuscular Hemoglobin 28.1 pg (25.6-32.2); Platelet Count 432 x10^3/uL (182-369); Red Blood Count 4.88 x10^6/uL (3.93-5.22); White Blood Count 16.6 x10^3/uL (3.98-10.04)
[2024-11-13 06:27] LABS: ALBUMIN 3.6 g/dL (3.5-5.0); ANION GAP 14.7 MEQ/L (5-15); BILIRUBIN,TOTAL 0.7 mg/dL (0.2-1.3); Calcium 8.4 mg/dL (8.4-10.2); Creatinine 1 0.63 mg/dL (0.52-1.04); EST GLOMERULAR FILTRATION RATE 91.3 ML/MIN; Potassium 4.5 mmol/L (3.5-5.1); Total Protein 6.9 g/dL (6.3-8.2)
[2024-11-13 07:37] LABS: INR 2.22 (0.8-3.0)
--- NOTE | 2024-11-13 08:23 | PCM.NOTE ---
Date and Time: 11/13/24813 Subjective Assessment: 11/10/24 is a 79 year old female with PMHX of of hypertension, hyperlipidemia, diabetes, is on digoxin and Coumadin for her arrhythmia. She presented to the emergency department with a complaint of shortness of breath and weakness. The patient has not been feeling well for the last couple of weeks. She went to see Dr. Callejas in his office and her room air oxygen saturation level was in the 80s. Therefore she was sent to the emergency department for further evaluation management. On arrival to the emergency department her room her oxygen saturation level here was 88%. She has a productive cough of greenish sputum. In the ER she was started on antibiotics, steriods, and dunebs for pneumonia as seen on the CXR. Will continue same plan of care. She is on 2lNC 92 % and baseline is room air. She states she is starting to feel better after ER breathing treatment. She has continued coarse lung sounds throughout. She denies CP, Abd. pain, N/V/D. 11/11/24 Pt sitting up in bed. She states she is starting to feel better today. WBC improving at 17.3. Continue antibiotics, steroids, and duonebs for pneumonia. A1C 12.08 and discussed better diabetic control via diet and exercise. Discussed to look at feet thoroughly daily to access for wounds, and to f/u with PCP if she see's anything concerning. Will need to d/c with insulin. Case management to help with obtaining glucometer for home. Nurse advised to provide diabetic insulin teaching. Lactic acid WNL today. LFT's elevated likely 2:2 sepsis. She denies CP, abd. pain, N/V/D. She has continued SOB and coarse lung sounds on the right side. 11/12/24 Pt sitting up in bed. She reports she continues to not feel well. She is re quiring 2lNC 95%, baseline room air. Sputum culture back and reviewed. Continue antibiotics per sensitivity results.Co2 19 and oral sodium bicarb started. INR 1.84, pharmacy managing warfarin. Lantus BID added as glucose remains elevated. Pt states she does not understand education provided by nutrition. Will ask Thursday if sub prior can again explain education with pt. Nurses continue to educate insulin and accuchecks. Pt agreeable to OP education. She denies CP, abd. pain, N/V/D. 11/13/24 Pt sitting up in bed and feeling better today. She continues to have some wheezing and requiring 2lNC 94%. Lantus increased to 20 units BID. WBC improved 16.6. Continue antibiotics, steriods, and dunebs for pneumonia - Review of Systems Constitutional: No Fever, No Chills Eyes: No Symptoms Ears, Nose, & Throat: No Symptoms Respiratory: Short Of Breath, Wheezing, No Cough Cardiac: No Chest Pain, No Edema, No Syncope Abdominal/Gastrointestinal: No Abdominal Pain, No Nausea, No Vomiting, No Diarrhea Genitourinary Symptoms: No Dysuria Musculoskeletal: No Back Pain, No Neck Pain Skin: No Rash Neurological: No Dizziness, No Focal Weakness, No Sensory Changes Psychological: No Symptoms Endocrine: No Symptoms Hematologic/Lymphatic: No Symptoms Immunological/Allergic: No Symptoms Objective Exam General Appearance: no apparent distress, alert Neurologic Exam: alert, oriented x 3, cooperative, normal mood/affect, nml cerebellar function, sensation nml, No motor deficits Skin Exam: normal color, warm, dry Eye Exam: PERRL, EOMI, eyes nml inspection Ears, Nose, Throat Exam: normal ENT inspection, pharynx normal, moist mucous membranes Neck Exam: normal inspection, non-tender, supple, full range of motion Respiratory Exam: wheezing, No respiratory distress Cardiovascular Exam: regular rate/rhythm, normal heart sounds Gastrointestinal/Abdomen Exam: soft, No tenderness, No mass Extremity Exam: normal inspection, normal range of motion Back Exam: normal inspection, normal range of motion, No CVA tenderness, No vertebral tenderness Pelvic Exam: deferred Rectal Exam: deferred Objective Data Vital Signs: Vital Signs - 24 hr Temp Pulse Resp BP BP Pulse Ox 11/13/24 07:48 97.5 F 77 18 137/91 94 L 11/13/24 06:52 77 18 94 L 11/13/24 04:00 96.9 F 81 19 146/84 94 L 11/12/24 23:51 97.1 F 77 17 112/59 95 11/12/24 19:53 97.9 F 83 16 146/93 94 L 11/12/24 19:00 97 11/12/24 16:00 96.9 F 79 18 144/63 93 L 11/12/24 15:06 91 H 18 96 11/12/24 11:38 96.8 F 100 H 18 146/82 96 11/12/24 10:54 93 H 18 92 L 11/12/24 08:56 73 162/108 Pain Assessment - Last Documented Pain Intensity 6 Pain Scale Used [facility] Intake and Output: Intake & Output 11/10/24 11/11/24 11/12/24 11/13/24 11:59 11:59 11:59 11:59 Intake Total 600 2600 1540 Balance 600 2600 1540 Weight 95.4 kg Lab Results: Lab Results-Last 24 Hours 11/12/24 11/12/24 11/12/24 Range/Units 11:28 16:19 20:40 WBC (3.98-10.04) x10^3/uL RBC (3.93-5.22) x10^6/uL Hgb (11.2-15.7) g/dL Hct (34.1-44.9) % MCV (79.4-94.8) fL MCH (25.6-32.2) pg MCHC (32.2-35.5) g/dL RDW (11.7-14.4) % Plt Count (182-369) x10^3/uL MPV (9.4-12.3) fL PT (9.4-12.5) SECONDS INR (0.8-3.0) Sodium (135-145) mmol/L Potassium (3.5-5.1) mmol/L Chloride (98-107) mmol/L Carbon Dioxide (22-30) mmol/L Anion Gap (5-15) MEQ/L BUN (7-17) mg/dL Creatinine (0.52-1.04) mg/dL Estimated GFR ML/MIN Glucose (74-106) mg/dL POC Glucometer 351 H 253 H 215 H (74 to 106) mg/dL Calcium (8.4-10.2) mg/dL Total Bilirubin (0.2-1.3) mg/dL AST (14-36) U/L ALT (0-35) U/L Alkaline Phosphatase (38-126) U/L Serum Total Protein (6.3-8.2) g/dL Albumin (3.5-5.0) g/dL 11/13/24 11/13/24 11/13/24 Range/Units 05:20 05:20 05:20 WBC 16.6 H (3.98-10.04) x10^3/uL RBC 4.88 (3.93-5.22) x10^6/uL Hgb 13.7 (11.2-15.7) g/dL Hct 41.5 (34.1-44.9) % MCV 85.0 (79.4-94.8) fL MCH 28.1 (25.6-32.2) pg MCHC 33.0 (32.2-35.5) g/dL RDW 14.0 (11.7-14.4) % Plt Count 432 H (182-369) x10^3/uL MPV 10.0 (9.4-12.3) fL PT 23.0 H (9.4-12.5) SECONDS INR 2.22 (0.8-3.0) Sodium 136 (135-145) mmol/L Potassium 4.5 (3.5-5.1) mmol/L Chloride 102 (98-107) mmol/L Carbon Dioxide 24 (22-30) mmol/L Anion Gap 14.7 (5-15) MEQ/L BUN 38 H (7-17) mg/dL Creatinine 0.63 (0.52-1.04) mg/dL Estimated GFR 91.3 ML/MIN Glucose 182 H (74-106) mg/dL POC Glucometer (74 to 106) mg/dL Calcium 8.4 (8.4-10.2) mg/dL Total Bilirubin 0.70 (0.2-1.3) mg/dL AST 82 H (14-36) U/L ALT 129 H (0-35) U/L Alkaline Phosphatase 102 (38-126) U/L Serum Total Protein 6.9 (6.3-8.2) g/dL Albumin 3.6 (3.5-5.0) g/dL 11/13/24 Range/Units 07:11 WBC (3.98-10.04) x10^3/uL RBC (3.93-5.22) x10^6/uL Hgb (11.2-15.7) g/dL Hct (34.1-44.9) % MCV (79.4-94.8) fL MCH (25.6-32.2) pg MCHC (32.2-35.5) g/dL RDW (11.7-14.4) % Plt Count (182-369) x10^3/uL MPV (9.4-12.3) fL PT (9.4-12.5) SECONDS INR (0.8-3.0) Sodium (135-145) mmol/L Potassium (3.5-5.1) mmol/L Chloride (98-107) mmol/L Carbon Dioxide (22-30) mmol/L Anion Gap (5-15) MEQ/L BUN (7-17) mg/dL Creatinine (0.52-1.04) mg/dL Estimated GFR ML/MIN Glucose (74-106) mg/dL POC Glucometer 175 H (74 to 106) mg/dL Calcium (8.4-10.2) mg/dL Total Bilirubin (0.2-1.3) mg/dL AST (14-36) U/L ALT (0-35) U/L Alkaline Phosphatase (38-126) U/L Serum Total Protein (6.3-8.2) g/dL Albumin (3.5-5.0) g/dL Radiology Exams: Radiology Procedures Category Date Time Status CHEST 2 VIEWS (PA AND LAT) Routine Exams 11/12/24 11:28 Completed Assessment/Plan (1) Pneumonia Current Visit: Yes Status: Acute Qualifiers: Laterality: right Code(s): J18.9 - PNEUMONIA, UNSPECIFIED ORGANISM (2) Type II diabetes mellitus Current Visit: Yes Status: Acute Qualifiers: Diabetes mellitus parts counterman insulin use: without snf use Diabetes mellitus complication status: without complication Qualified Code(s): E11.9 - Type 2 diabetes mellitus without complications (3) Hypoxia Current Visit: Yes Status: Acute Code(s): R09.02 - HYPOXEMIA (4) Leukocytosis Current Visit: Yes Status: Acute Code(s): D72.829 - ELEVATED WHITE BLOOD CELL COUNT, UNSPECIFIED (5) HTN (hypertension) Current Visit: Yes Status: Chronic Qualifiers: Hypertension type: primary hypertension Qualified Code(s): I10 - Essential (primary) hypertension Code(s): I10 - ESSENTIAL (PRIMARY) HYPERTENSION (6) Hyperlipidemia Current Visit: Yes Status: Chronic Code(s): E78.5 - HYPERLIPIDEMIA, U NSPECIFIED (7) Current use of snf anticoagulation Current Visit: Yes Status: Chronic Code(s): Z79.01 - NURSING HOME (CURRENT) USE OF ANTICOAGULANTS (8) Obesity (BMI 30-39.9) Current Visit: Yes Status: Chronic Code(s): E66.9 - OBESITY, UNSPECIFIED (9) Diarrhea Current Visit: Yes Status: Chronic Code(s): R19.7 - DIARRHEA, UNSPECIFIED (10) Sepsis Current Visit: Yes Status: Acute Qualifiers: Severe sepsis acute organ dysfunction type: acute respiratory failure Acute respiratory failure type: with hypoxia Severe sepsis shock status: without septic shock Assessment & Plan: (1) Pneumonia Current Visit: Yes Status: Acute Qualifiers: Laterality: right Assessment & Plan: - CXR reviewed - Sputum and BC x2 pending - O2 2lNC 94%- baseline RA - antibiotics, steroids, duonebs. - Tele - CBC, CMP reviewed - Flu/COVID/RSV negative - WBC 21.5 11/11 - WBC 17.3- improved - CBC, CMP reviewed - O2 3lNC 95% 11/12 - WBC 19.2 - sputum culture reviewed - BCX 2 negative - CBC reviewed - 2lNC 95%- baseline room air 11/13 - 2lNC 94% - WBC 16.6 - + wheezing RLL - Repeat CXR 11/12: 1. Increased bronchovascular markings seen in the lung jean bilaterally suggests infective bronchitic changes versus mild congestion, more so in the right lung mid and lower zones 2. An indistinct right costophrenic angle could be due to streak of pleural fluid or minimal pleural thickening 3. A horizontal small linear band seen across the left costophrenic angle could be plate atelectasis versus reticular fibrotic band 4. Clinical and lab correlation advised Code(s): J18.9 - PNEUMONIA, UNSPECIFIED ORGANISM (2) Type II diabetes mellitus Current Visit: Yes Status: Acute Qualifiers: Diabetes mellitus parts counterman insulin use: without snf use Diabetes mellitus complication status: without complication Qualified Code(s): E11.9 - Type 2 diabetes mellitus without complications Assessment & Plan: - A1C 12.08- uncontrolled - Continue home meds - Accuchecks ac/hs - Humalog S/S 11/11 - Start insulin teaching IP- by nursing - Detailed Diabetic education provided - to order accucheck machine for home - added Humalog 10 units with meals 11/12 - Added Lantus 15 units BID - Pt to f/u with education classes OP - Will need to ask sub prior to speak with pt again Thursday - Nursing to continue with education for home insulin training 11/13 - Lantus increased to 20 units BID (3) Hypoxia Current Visit: Yes Status: Acute Assessment & Plan: - 2:2 pneumonia - See plan above Code(s): R09.02 - HYPOXEMIA (4) Leukocytosis Current Visit: Yes Status: Acute Assessment & Plan: - 2:2 pneumonia - WBC 21.5- trend 11/11 - WBC 17.3- trend 11/12 - WBC 19.2 - may be 2;2 steroids 11/13 - WBC 16.6 Code(s): D72.829 - ELEVATED WHITE BLOOD CELL COUNT, UNSPECIFIED (5) HTN (hypertension) Current Visit: Yes Status: Chronic Qualifiers: Hypertension type: primary hypertension Qualified Code(s): I10 - Essential (primary) hypertension Assessment & Plan: - BP stable - Continue home meds Code(s): I10 - ESSENTIAL (PRIMARY) HYPERTENSION (6) Hyperlipidemia Current Visit: Yes Status: Chronic Assessment & Plan: - Continue statin Code(s): E78.5 - HYPERLIPIDEMIA, UNSPECIFIED (7) Current use of parts counterman anticoagulation Current Visit: Yes Status: Chronic Assessment & Plan: - Pharmacy to dose coumadin - warfarin - INR today 1.56- subtherapeutic 11/11 - INR 1.59 11/12 - INR 1.84- improving - pharmacy managing 11/13 - INR 2.22 Code(s): Z79.01 - NURSING HOME (CURRENT) USE OF ANTICOAGULANTS (8) Obesity (BMI 30-39.9) Current Visit: Yes Status: Chronic Assessment & Plan: - Advised ADA diet and exercise control Code(s): E66.9 - OBESITY, UNSPECIFIED (9) Diarrhea Current Visit: Yes Status: Chronic Assessment & Plan: - c-diff pending - Pt asked for pepto- bismol and unable to give as it affects coumadin level - probiotics 11/12 - C-diff not collected yet as diarrhea has resolved with probiotics Code(s): R19.7 - DIARRHEA, UNSPECIFIED (10) Sepsis Current Visit: Yes Status: Acute Qualifiers: Severe sepsis acute organ dysfunction type: acute respiratory failure Acute respiratory failure type: with hypoxia Severe sepsis shock status: without septic shock Assessment & Plan: - WBC 21.5 on admission - acute hypoxia 2:2 pneumonia- see plan above - Lactic acid 2.1- IVF gave in ER - HR > 90, Resp > 20 on admission - 3lNC 95% - BC x2 and sputum culture 11/11 - LA 1.8 today - WBC improved 17.3 - On 3lNC 95%- baseline RA - BC x2 and sputum culture pending - see pneumonia plan 11/12 - BC x2 negative - Sputum culture + for Raoutella Kleb Ornithinolytica and Morganella Morgani Ssp Sreedhar - Consider ID referral OP - Continue IV antibiotic - Continue good glycemic control VTE: Warfarin PPI: Protonix Next of KIN: Code status: Full D/C plan: 1-2 days
[2024-11-13] MEDS: Lantus Insulin SQ SCH (09:07)
[2024-11-14 04:48] LABS: Hematocrit 41.3 % (34.1-44.9); Hemoglobin 13.6 g/dL (11.2-15.7); Mean Cell Volume 85.2 fL (79.4-94.8); Mean Corpuscular Hgb Concent. 32.9 g/dL (32.2-35.5); Mean Platelet Volume 10.1 fL (9.4-12.3); Platelet Count 441 x10^3/uL (182-369); Red Blood Count 4.85 x10^6/uL (3.93-5.22); Red Cell Distribution Width 14.1 % (11.7-14.4)
[2024-11-14 05:00] LABS: ALBUMIN 3.4 g/dL (3.5-5.0); ANION GAP 13.6 MEQ/L (5-15); BILIRUBIN,TOTAL 0.6 mg/dL (0.2-1.3); Calcium 8.1 mg/dL (8.4-10.2); Creatinine 1 0.59 mg/dL (0.52-1.04); EST GLOMERULAR FILTRATION RATE 92.8 ML/MIN; Potassium 4.6 mmol/L (3.5-5.1); Total Protein 6.6 g/dL (6.3-8.2)
--- NOTE | 2024-11-14 05:00 | PCM.NOTE ---
Date and Time: 11/14/24 0451 Subjective Assessment: Ms. Zabala, a 79-year-old female with a history of hypertension, hyperlipidemia, diabetes, and arrhythmia on digoxin and Coumadin, presented to ED 11/10/24 with complaints of shortness of breath and weakness. She was found to have pneumonia with hypoxia and was started on antibiotics, steroids, and Duo nebs. Sepsis was suspected on admission due to tachycardia, respiratory distress, and elevated lactic acid (2.1). Blood cultures were negative, and sputum cultures grew Raoultella ornithinolytica and Morganella morganii ssp. morganii. Lactic acid normalized, and WBC trended down (though fluctuating with steroid use). Labs showing elevated LFTs likely due to sepsis, and an INR of 1.84 with pharmacy managing warfarin. Her diabetes remains uncontrolled (A1C 12.08), requiring the addition of Lantus BID. She is receiving education on diabetes management, but she reports difficulty understanding nutrition guidance. A follow-up with a marketing development representative is planned. She remains on 2L NC oxygen (baseline room air) and is gradually improving. Case management is assisting with a glucometer for home use. Plan for continued antibiotics per culture results, steroids, and supportive care with ongoing monitoring. Objective Data Vital Signs: Vital Signs - 24 hr Temp Pulse Resp BP BP Pulse Ox 11/14/24 03:49 97.8 F 84 17 158/74 96 11/13/24 23:38 97.1 F 86 18 131/61 92 L 11/13/24 20:00 97.7 F 81 16 123/78 95 11/13/24 18:42 66 18 96 11/13/24 16:00 96.8 F 63 16 125/72 91 L 11/13/24 14:57 74 18 95 11/13/24 12:00 97.3 F 85 20 128/80 92 L 11/13/24 10:53 83 18 94 L 11/13/24 09:11 77 162/108 11/13/24 07:48 97.5 F 77 18 137/91 94 L 11/13/24 06:52 77 18 94 L Pain Assessment - Last Documented Pain Intensity 5 Pain Scale Used 0-10 Pain Scale Intake and Output: Intake & Output 11/11/24 11/12/24 11/13/24 11/14/24 11:59 11:59 11:59 11:59 Intake Total 600 2600 1779 2049 Balance 600 2600 1779 2049 Weight 95.4 kg Lab Results: Lab Results-Last 24 Hours 11/13/24 11/13/24 11/13/24 Range/Units 05:20 05:20 05:20 WBC 16.6 H (3.98-10.04) x10^3/uL RBC 4.88 (3.93-5.22) x10^6/uL Hgb 13.7 (11.2-15.7) g/dL Hct 41.5 (34.1-44.9) % MCV 85.0 (79.4-94.8) fL MCH 28.1 (25.6-32.2) pg MCHC 33.0 (32.2-35.5) g/dL RDW 14.0 (11.7-14.4) % Plt Count 432 H (182-369) x10^3/uL MPV 10.0 (9.4-12.3) fL PT 23.0 H (9.4-12.5) SECONDS INR 2.22 (0.8-3.0) Sodium 136 (135-145) mmol/L Potassium 4.5 (3.5-5.1) mmol/L Chloride 102 (98-107) mmol/L Carbon Dioxide 24 (22-30) mmol/L Anion Gap 14.7 (5-15) MEQ/L BUN 38 H (7-17) mg/dL Creatinine 0.63 (0.52-1.04) mg/dL Estimated GFR 91.3 ML/MIN Glucose 182 H (74-106) mg/dL POC Glucometer (74 to 106) mg/dL Calcium 8.4 (8.4-10.2) mg/dL Total Bilirubin 0.70 (0.2-1.3) mg/dL AST 82 H (14-36) U/L ALT 129 H (0-35) U/L Alkaline Phosphatase 102 (38-126) U/L Serum Total Protein 6.9 (6.3-8.2) g/dL Albumin 3.6 (3.5-5.0) g/dL 11/13/24 11/13/24 11/13/24 Range/Units 07:11 11:29 16:24 WBC (3.98-10.04) x10^3/uL RBC (3.93-5.22) x10^6/uL Hgb (11.2-15.7) g/dL Hct (34.1-44.9) % MCV (79.4-94.8) fL MCH (25.6-32.2) pg MCHC (32.2-35.5) g/dL RDW (11.7-14.4) % Plt Count (182-369) x10^3/uL MPV (9.4-12.3) fL PT (9.4-12.5) SECONDS INR (0.8-3.0) Sodium (135-145) mmol/L Potassium (3.5-5.1) mmol/L Chloride (98-107) mmol/L Carbon Dioxide (22-30) mmol/L Anion Gap (5-15) MEQ/L BUN (7-17) mg/dL Creatinine (0.52-1.04) mg/dL Estimated GFR ML/MIN Glucose (74-106) mg/dL POC Glucometer 175 H 187 H 162 H (74 to 106) mg/dL Calcium (8.4-10.2) mg/dL Total Bilirubin (0.2-1.3) mg/dL AST (14-36) U/L ALT (0-35) U/L Alkaline Phosphatase (38-126) U/L Serum Total Protein (6.3-8.2) g/dL Albumin (3.5-5.0) g/dL 11/13/24 11/14/24 Range/Units 20:48 04:15 WBC 16.0 H (3.98-10.04) x10^3/uL RBC 4.85 (3.93-5.22) x10^6/uL Hgb 13.6 (11.2-15.7) g/dL Hct 41.3 (34.1-44.9) % MCV 85.2 (79.4-94.8) fL MCH 28.0 (25.6-32.2) pg MCHC 32.9 (32.2-35.5) g/dL RDW 14.1 (11.7-14.4) % Plt Count 441 H (182-369) x10^3/uL MPV 10.1 (9.4-12.3) fL PT (9.4-12.5) SECONDS INR (0.8-3.0) Sodium (135-145) mmol/L Potassium (3.5-5.1) mmol/L Chloride (98-107) mmol/L Carbon Dioxide (22-30) mmol/L Anion Gap (5-15) MEQ/L BUN (7-17) mg/dL Creatinine (0.52-1.04) mg/dL Estimated GFR ML/MIN Glucose (74-106) mg/dL POC Glucometer 156 H (74 to 106) mg/dL Calcium (8.4-10.2) mg/dL Total Bilirubin (0.2-1.3) mg/dL AST (14-36) U/L ALT (0-35) U/L Alkaline Phosphatase (38-126) U/L Serum Total Protein (6.3-8.2) g/dL Albumin (3.5-5.0) g/dL Radiology Exams: Radiology Procedures Category Date Time Status CHEST 2 VIEWS (PA AND LAT) Routine Exams 11/12/24 11:28 Completed Assessment/Plan (1) Pneumonia Current Visit: Yes Status: Acute Qualifiers: Laterality: right Assessment & Plan: - CXR reviewed with right-sided pneumonia - Sputum cultures with Raoultella ornithinolytica and Morganella morganii ssp. Morganii-sensitive to ceftriaxone -Supplemental oxygen with goal spo2 > 92%-- baseline RA -Blood cultures NGTD - Continue antibiotics, steroids, duonebs. - Tele - CBC, CMP reviewed - Flu/COVID/RSV negative Code(s): J18.9 - PNEUMONIA, UNSPECIFIED ORGANISM (2) Sepsis Current Visit: Yes Status: Acute Qualifiers: Severe sepsis acute organ dysfunction type: acute respiratory failure Acute respiratory failure type: with hypoxia Severe sepsis shock status: without septic shock Assessment & Plan: -Met criteria on admission with leukocytosis, tachycardia, tahcypnea, pneumonia -2:2 pneumonia- see plan above - Lactic acid 2.1- IVF gave in ER - resolved - BC x2 NGTD - Sputum culture + for Raoutella Kleb Ornithinolytica and Morganella Morgani Ssp Sreedhar - Consider ID referral OP - Continue IV antibiotic - Continue good glycemic control (3) Hypoxia Current Visit: Yes Status: Acute Assessment & Plan: - 2:2 pneumonia - See plan above Code(s): R09.02 - HYPOXEMIA (4) Leukocytosis Current Visit: Yes Status: Acute Assessment & Plan: - 2:2 pneumonia -see plan above- trend Code(s): D72.829 - ELEVATED WHITE BLOOD CELL COUNT, UNSPECIFIED (5) Type II diabetes mellitus Current Visit: Yes Status: Acute Qualifiers: Diabetes mellitus group home insulin use: without group home use Diabetes mellitus complication status: without complication Qualified Code(s): E11.9 - Type 2 diabetes mellitus without complications Assessment & Plan: - A1C 12.08- uncontrolled - Continue home meds - Accuchecks ac/hs - Humalog S/S - Diabetic education with insulin teaching IP- by nursing - Detailed Diabetic education provided - CM to order accucheck machine for home - added Humalog 10 units with meals - Added Lantus 15 units BID - Pt to f/u with education classes OP - Nutrition consult Thursday (6) Current use of group home anticoagulation Current Visit: Yes Status: Chronic Assessment & Plan: - Pharmacy to dose coumadin Code(s): Z79.01 - [facility] (CURRENT) USE OF ANTICOAGULANTS (7) HTN (hypertension) Current Visit: Yes Status: Chronic Qualifiers: Hypertension type: primary hypertension Qualified Code(s): I10 - Essential (primary) hypertension Assessment & Plan: - BP stable - Continue home meds Code(s): I10 - ESSENTIAL (PRIMARY) HYPERTENSION (8) Hyperlipidemia Current Visit: Yes Status: Chronic Assessment & Plan: - Continue statin Code(s): E78.5 - HYPERLIPIDEMIA, UNSPECIFIED (9) Obesity (BMI 30-39.9) Current Visit: Yes Status: Chronic Assessment & Plan: - Advised ADA diet and exercise control VTE: Warfarin PPI: Protonix Next of KIN: Code status: Full D/C plan: 1-2 days Code(s): E66.9 - OBESITY, UNSPECIFIED
[2024-11-14 05:24] LABS: INR 2.28 (0.8-3.0); PROTIME 23.5 SECONDS (9.4-12.5)
[2024-11-14 07:55] VITALS: O2SAT 94
[2024-11-14 11:29] VITALS: BP 138/83; PULSE 94; RESP 16; TEMP 97.9
--- NOTE | 2024-11-14 12:17 | PCM.DS ---
Discharge Summary Date of Admission: 11/10/24 17:31 Date of Discharge: 11/14/24 Admitting Physician: KARI QUILES MD Consults: Consults on Case 11/11/24 11:04 Nutritional Consult ROUTINE 11/12/24 07:25 Notify Physician ROUTINE Primary Care Provider: ERYN GRAVES Allergies Allergies JOSE ANTONIO Inhibitors Allergy (Severe, Verified 11/10/24 17:51) Anaphylactic Reaction bee venom protein (honey bee) Allergy (Severe, Verified 11/10/24 17:51) Anaphylactic Reaction Hospital Summary - Hospital Course Hospital Course: Ms. Zabala, a 79-year-old female with a history of hypertension, hyperlipidemia, diabetes, and arrhythmia on digoxin and Coumadin, presented to ED 11/10/24 with complaints of shortness of breath and weakness. She was found to have pneumonia with hypoxia and was started on antibiotics, steroids, and Duonebs. Sepsis was suspected on admission due to tachycardia, respiratory di stress, and elevated lactic acid (2.1). Blood cultures were negative, and sputum cultures grew Raoultella ornithinolytica and Morganella morganii ssp. morganii. Lactic acid normalized, and WBC trended down (though fluctuating with steroid use). Labs showing elevated LFTs likely due to sepsis, and an INR of 1.84 with pharmacy managing warfarin. Her diabetes remains uncontrolled (A1C 12.08), requiring the addition of Lantus BID. She is receiving education on diabetes management, but she reports difficulty understanding nutrition guidance. A follow-up with a coupon collection clerk is planned prior to discharge as well as OP diabetic education class. She will be provided written copies of diabetic education as well. She is at her baseline oxygen of RA. Will have RT perform walk test to ensure she does not require home oxygen. Will have CM obtain nebulizer machine with duoneb. Case management is assisting with a glucometer for home use. Will dismiss on cefuroxime and prednisone/duonebs. Discharge Note New Diagnosis: Pneumonia - DM requiring insulin New Medications: Cefuroxime/duonebs/prednisone/ neb machine/ coumadin dosing changed to 4mg po Sun////Sat - 5mg /Thursday - recheck at Dr. Graves's office/ Lantus/ lispro insulin - Glucometer - lancets/strips Follow Up: PCP/ Diabetic education class I spent 35 minutes [id number] with the patient on the day of discharge performing discharge exam, discussing hospital stay and discharge instructions with patient and caregivers, preparation of discharge records, prescriptions & referral forms and addressing any questions/concerns the patient had as documented above. - Vitals & Intake/Output Vital Signs: Vital Signs Temperature 97.9 F 11/14/24 11:27 Pulse Rate 94 H 11/14/24 11:27 Respiratory Rate 16 11/14/24 11:27 Blood Pressure 138/83 11/14/24 11:27 O2 Sat by Pulse Oximetry 94 L 11/14/24 11:27 Intake & Output: Intake & Output 11/12/24 11/13/24 11/14/24 11/15/24 11:59 11:59 11:59 11:59 Intake Total 2600 1780 2530 Balance 2600 1780 2530 - Lab Result Diagrams: 11/14/24 04:15 11/14/24 04:15 Lab Results-Last 24 Hrs: Lab Results-Last 24 Hours 11/13/24 11/13/24 11/14/24 Range/Units 16:24 20:48 04:15 WBC (3.98-10.04) x10^3/uL RBC (3.93-5.22) x10^6/uL Hgb (11.2-15.7) g/dL Hct (34.1-44.9) % MCV (79.4-94.8) fL MCH (25.6-32.2) pg MCHC (32.2-35.5) g/dL RDW (11.7-14.4) % Plt Count (182-369) x10^3/uL MPV (9.4-12.3) fL PT 23.5 H (9.4-12.5) SECONDS INR 2.28 (0.8-3.0) Sodium (135-145) mmol/L Potassium (3.5-5.1) mmol/L Chloride (98-107) mmol/L Carbon Dioxide (22-30) mmol/L Anion Gap (5-15) MEQ/L BUN (7-17) mg/dL Creatinine (0.52-1.04) mg/dL Estimated GFR ML/MIN Glucose (74-106) mg/dL POC Glucometer 162 H 156 H (74 to 106) mg/dL Calcium (8.4-10.2) mg/dL Total Bilirubin (0.2-1.3) mg/dL AST (14-36) U/L ALT (0-35) U/L Alkaline Phosphatase (38-126) U/L Serum Total Protein (6.3-8.2) g/dL Albumin (3.5-5.0) g/dL 11/14/24 11/14/24 11/14/24 Range/Units 04:15 04:15 07:44 WBC 16.0 H (3.98-10.04) x10^3/uL RBC 4.85 (3.93-5.22) x10^6/uL Hgb 13.6 (11.2-15.7) g/dL Hct 41.3 (34.1-44.9) % MCV 85.2 (79.4-94.8) fL MCH 28.0 (25.6-32.2) pg MCHC 32.9 (32.2-35.5) g/dL RDW 14.1 (11.7-14.4) % Plt Count 441 H (182-369) x10^3/uL MPV 10.1 (9.4-12.3) fL PT (9.4-12.5) SECONDS INR (0.8-3.0) Sodium 137 (135-145) mmol/L Potassium 4.6 (3.5-5.1) mmol/L Chloride 102 (98-107) mmol/L Carbon Dioxide 26 (22-30) mmol/L Anion Gap 13.6 (5-15) MEQ/L BUN 27 H (7-17) mg/dL Creatinine 0.59 (0.52-1.04) mg/dL Estimated GFR 92.8 ML/MIN Glucose 136 H (74-106) mg/dL POC Glucometer 121 H (74 to 106) mg/dL Calcium 8.1 L (8.4-10.2) mg/dL Total Bilirubin 0.60 (0.2-1.3) mg/dL AST 68 H (14-36) U/L ALT 134 H (0-35) U/L Alkaline Phosphatase 91 (38-126) U/L Serum Total Protein 6.6 (6.3-8.2) g/dL Albumin 3.4 L (3.5-5.0) g/dL 11/14/24 Range/Units 11:24 WBC (3.98-10.04) x10^3/uL RBC (3.93-5.22) x10^6/uL Hgb (11.2-15.7) g/dL Hct (34.1-44.9) % MCV (79.4-94.8) fL MCH (25.6-32.2) pg MCHC (32.2-35.5) g/dL RDW (11.7-14.4) % Plt Count (182-369) x10^3/uL MPV (9.4-12.3) fL PT (9.4-12.5) SECONDS INR (0.8-3.0) Sodium (135-145) mmol/L Potassium (3.5-5.1) mmol/L Chloride (98-107) mmol/L Carbon Dioxide (22-30) mmol/L Anion Gap (5-15) MEQ/L BUN (7-17) mg/dL Creatinine (0.52-1.04) mg/dL Estimated GFR ML/MIN Glucose (74-106) mg/dL POC Glucometer 153 H (74 to 106) mg/dL Calcium (8.4-10.2) mg/dL Total Bilirubin (0.2-1.3) mg/dL AST (14-36) U/L ALT (0-35) U/L Alkaline Phosphatase (38-126) U/L Serum Total Protein (6.3-8.2) g/dL Albumin (3.5-5.0) g/dL Micro Results-Entire Visit: Microbiology 11/10/24 14:58 Blood Culture - Preliminary Blood 11/10/24 14:50 Blood Culture - Preliminary Blood 11/10/24 16:26 Gram Stain - Final Sputum - Expectorant Sputum Culture - Final Raoutella Kleb Ornithinolytica Morganella Morganii Ssp Sreedhar Accuchecks Date 11/14/24 Date 11/14/24 Date 11/13/24 Time 11:27 Time 07:56 Time 20:45 - Radiology Exams Ordered Rad Exams-Entire Visit: Radiology Procedures Category Date Time Status CHEST 2 VIEWS (PA AND LAT) Routine Exams 11/12/24 11:28 Completed - Procedures and Test Procedures and Tests throughout Hospitalization: Therapy Orders & Screens 11/10/24 14:19 Respiratory Therapy Assessment DAILY Comment: 11/10/24 17:31 EKG REPEAT IN AM Comment: Oxygen Nasal Cannula 2 lpm Comment: Respiratory Therapy Consult ONCE Comment: Reason For Exam: 11/10/24 18:56 RT Miscellaneous Order ROUTINE Comment: Physician Instructions: baseline RA Reason For Exam: O2 keep oxygen > 92% Diagnosis: PNE 11/10/24 22:45 Respiratory Therapy Assessment DAILY Comment: Diagnosis: PNE 11/10/24 22:47 Flutter Therapy UD Comment: Diagnosis: PNE Discharge Exam General Appearance: no apparent distress Neurologic Exam: alert, oriented x 3, cooperative Eye Exam: PERRL Ears, Nose, Throat Exam: normal ENT inspection Neck Exam: normal inspection Respiratory Exam: crackles/rales, wheezing Cardiovascular Exam: regular rate/rhythm, normal heart sounds Gastrointestinal/Abdomen Exam: soft, normal bowel sounds Pelvic Exam: deferred Rectal Exam: deferred Back Exam: normal inspection Extremity Exam: normal inspection Skin Exam: normal color Final Diagnosis/Problem List - Final Discharge Diagnosis/Problem (1) Pneumonia Current Visit: Yes Status: Acute Code(s): J18.9 - PNEUMONIA, UNSPECIFIED ORGANISM (2) Sepsis Current Visit: Yes Status: Resolved (3) Hypoxia Current Visit: Yes Status: Resolved Code(s): R09.02 - HYPOXEMIA (4) Leukocytosis Current Visit: Yes Status: Acute Code(s): D72.829 - ELEVATED WHITE BLOOD CELL COUNT, UNSPECIFIED (5) Type II diabetes mellitus Current Visit: Yes Status: Chronic (6) Current use of intermediate anticoagulation Current Visit: Yes Status: Chronic Code(s): Z79.01 - SNF (CURRENT) USE OF ANTICOAGULANTS (7) HTN (hypertension) Current Visit: Yes Status: Chronic Code(s): I10 - ESSENTIAL (PRIMARY) HYPERTENSION (8) Hyperlipidemia Current Visit: Yes Status: Chronic Code(s): E78.5 - HYPERLIPIDEMIA, UNSPECIFIED (9) Obesity (BMI 30-39.9) Current Visit: Yes Status: Chronic Code(s): E66.9 - OBESITY, UNSPECIFIED - Discharge Discharge Date: 11/14/24 Disposition: Home, Self-Care Condition: Fair Prescriptions: New Blood-Glucose Meter [Accu-Chek Guide Monitor System] 1 each [place]1 [facility] Sugar Diagnostic [Accu-Chek Guide Test Strip] 1 each ACHS #150 strip Lancets [Accu-Chek Softclix] 1 each [facility] #150 [facility] [place] Insulin Glargine,Hum.rec.anlog [Basaglar Kwikpen U-100] 20 unit SQ BID 30 Days #120 units MDD 40 cefuroxime axetiL [Cefuroxime] 500 mg PO BID 10 Days #20 tablet Warfarin Sodium 5 mg [Coumadin] 5 mg PO MoFr@1800 tablet Warfarin Sodium 2 mg [Coumadin 2 MG] 4 mg PO [id number]@1800 tablet Prednisone 20 mg [Deltasone 20 mg] 20 mg PO BID 5 Days #10 tablet Albuterol/Ipratropium 3ml Neb* [DUONEB 0.5-3 MG/3 ml Neb] 3 ml IH QIDPRN PRN 30 Days #120 amp PRN Reason: Shortness Of Breath/Wheezing glucagon HCL [Glucagon Emergency Kit] See Rx Instructions .ROUTE .COMPLEX 30 Days #1 kit Insulin Lispro [Humalog Kwikpen] 10 unit SQ TIDWM 30 Days #90 units Guaifenesin 600 mg ER [Mucinex 600MG ER Tabs] 600 mg PO BID 14 Days #28 tablet Pen Needle, Diabetic [Pen [place]] See Rx Instructions .ROUTE .COMPLEX 30 Da ys #1 packet Pantoprazole 20 mg [Protonix 20MG Tablet] 20 mg PO DAILY 30 Days #30 tablet Continue carvediloL [Carvedilol] 25 mg PO BID Empagliflozin [Jardiance] 25 mg PO DAILY Amlodipine Besylate [Norvasc] 10 mg PO DAILY Allopurinol 300 mg [Zyloprim 300 mg] 300 mg PO QHS Potassium Chloride [Klor-Con M10] 10 meq PO BID Digoxin 0.125 mg Tablet [Lanoxin 0.125MG TABLET] 0.25 mg PO DAILY Furosemide 40 mg [Lasix 40 MG] 40 mg PO DAILY Losartan Potassium [Cozaar] 100 mg PO DAILY Atorvastatin Calcium 20 mg PO QHS Discontinued Glimepiride 2 mg [Amaryl 2 MG] 2 mg PO DAILY Warfarin Sodium 4 mg PO QHS Prednisone 5 mg [Deltasone 5 mg] 5 mg PO DAILY Instructions: Type 2 diabetes Additional Instructions: [facility] HAS A 1 DAY DIABETIC COURSE 12/15/24- IF INTERESTED, CALL TO REGISTER AT [phone] NEBULIZER MACHINE WILL BE DELIVERED TO YOUR HOME BY [facility]- YOU CAN CALL TO FOLLOW UP WITH THIS IF NEEDED AT [phone] Follow up with: ERYN GRAVES [Primary Care Provider] -
[2024-11-14] MEDS ORDERED: COUMADIN PO SCH (18:00)
== END 2024-11-14 15:51 | disposition home or self-care (01) ==
LOC: ED 14:03 → MED SURG 17:31
PROVIDERS: ADMIT Internal Medicine; ATTEND Internal Medicine
DX: J18.9 Pneumonia, unspecified organism (principal); A41.9 Sepsis, unspecified organism; D72.829 Elevated white blood cell count, unspecified; E11.9 Type 2 diabetes mellitus without complications; I10 Essential (primary) hypertension; E78.5 Hyperlipidemia, unspecified; E66.9 Obesity, unspecified; R19.7 Diarrhea, unspecified; J96.01 Acute respiratory failure with hypoxia; Z79.899 Other long term (current) drug therapy; Z79.01 Long term (current) use of anticoagulants
CPT/HCPCS: 0241U; 36415; 71045; 71046; 80053; 80162; 81001; 82947; 83036; 83605; 83735; 83880; 84484; 85025; 85027; 85610; 87040; 87070; 87077; 87186; 93005; 93268; 94640; 94667; 94668; 94760; 96375; 99291; G0378; Q3014; 99285; J0456; J0696; J1817; J2919; A9270-GY